=== PATIENT | male | born 1950 | race Caucasian/White ===

== ENCOUNTER 2016-09-22 11:15 | Emergency (ER) | payer OTHER, MEDICARE ==
[~2016-09-22] VITALS: Ht 177.8 cm; Wt 68.4 kg
[~2016-09-22 11:15] MED LIST: ASPI81TA28 PO; CIPR-255 PO; HYDR25TA4 PO; LOSA1TAB PO; NTRS PO; OMEG10007 PO; RED600TA PO
[2016-09-22 11:18] VITALS: Ht 177.8 cm; Wt 68.4 kg
[2016-09-22] MEDS ORDERED: SODIUM CHLORIDE 0.9% 1000ML 1,000 ML IV ONE (11:26)
[2016-09-22] MEDS ORDERED: ALBUT/IPRATROP 3MG/0.5MG NEB 3 ML VIAL INH STA (11:26)
--- NOTE | 2016-09-22 11:34 | EMERGENCY ROOM VISIT NOTE ---
History Report prepared by Adwoa: Shayne Gilbert Under the Supervision of: Dr. Freddy Almazan M.D. First contact with patient: 11:22 Chief Complaint: FEVER Stated Complaint: FEVER X 7 DAYS History of Present Illness The patient is a 66 year old male who presents to the Emergency Room with complaints of a persistent fever beginning 7 days ago. He notes he has had a productive cough beginning yesterday, and some diarrhea yesterday. He denies having any sore throat, stuffy nose, abdominal pain, urinary symptoms, or any chest pain. He has not had recent sick contacts, but notes he has been skiing recently with which he has had some shortness of breath. The patient denies any history of lung disease, bronchitis, or pneumonia. He admits to getting the flu shot, and reports that Ibuprofen helps to break his fever. Source of History: patient Onset: 7 days ago Position: other (global) Quality: other (fever) Timing: other (persistent) Modifying Factors (Relieving): ibuprofen Associated Symptoms: + SOB (with skiing), + cough, + diarrhea, No abdominal pain, No sorethroat, No urinary symptoms Review of Systems See HPI for pertinent positives & negatives. A total of 10 systems reviewed and were otherwise negative. Family History No pertinent family history stated. Social History Smoking Status: Never Smoker Housing Status: other [facility]) Current/Historical Medications Scheduled Albuterol Hfa (Ventolin Hfa), 2 PUFFS INH Q6H Amlodipine Besylate (Norvasc), 10 MG PO DAILY Amoxicillin & Pot Clavulanate (Augmentin 875-125 mg), 875 MG PO BID Aspirin (Aspirin Ec), 81 MG PO DAILY Fish Oil ([place]-3), 2,400 MG PO DAILY Hydrochlorothiazide (Hctz), 12.5 MG PO DAILY Ibuprofen (Advil), 200-600 MG PO Q4H Losartan Potassium (Cozaar), 25 MG PO DAILY Red Yeast Rice Extract (Red Yeast Rice), 1 TAB PO DAILY Allergies Coded Allergies: No Known Allergies (Unverified , 09/22/16) Physical Exam Vital Signs Date Time Temp Pulse Resp B/P Pulse Ox O2 Delivery O2 Flow Rate FiO2 09/22/16 14:01 88 20 106/75 96 09/22/16 13:10 37.2 82 22 107/74 94 Room Air 09/22/16 11:49 89 09/22/16 11:40 94 Room Air 09/22/16 11:18 37.5 93 18 122/70 91 Room Air Physical Exam GENERAL: Patient is in no acute distress. HEENT: No acute trauma, normocephalic atraumatic, mucous membranes moist, no nasal congestion, no scleral icterus. No throat erythema or exudate. NECK: No stridor, no adenopathy, no meningismus, trachea is midline. LUNGS: Decreased breath sounds bilaterally; breath sounds are equal; crackles at the right base more so than the left. HEART: Without murmurs gallops or rubs, regular rate and rhythm. ABDOMEN: Soft, nontender, bowel sounds positive, no hernias, no peritonitis. EXTREMITIES: No cyanosis or edema, full range of motion of all the joints without pain or difficulty, no signs for acute trauma. NEUROLOGIC: Oriented x 3, no acute motor or sensory deficits, no focal weakness. SKIN: No rash, no jaundice, mild diaphoresis. Medical Decision & Procedures ER Provider Diagnostic Interpretation: X-ray results as stated below per interpretation by me and the radiologist: CHEST ONE VIEW PORTABLE FINDINGS: Developing bilateral parenchymal infiltrates. No evidence for true consolidative change. Diaphragms are smooth. IMPRESSION: Bilateral parenchymal infiltrates. Electronically signed by: Jordan Schmidt M.D. 09/22/2016 11:38 AM Dictated Date/Time: 09/22/2016 11:38 AM Laboratory Results 09/22/16 11:45 Red Blood Count 4.37, Mean Corpuscular Volume 83.3, Mean Corpuscular Hemoglobin 29.5, Mean Corpuscular Hemoglobin Concent 35.4, Mean Platelet Volume 10.4, Neutrophils (%) (Auto) 86.6, Lymphocytes (%) (Auto) 10.3, Monocytes (%) (Auto) 2.3, Eosinophils (%) (Auto) 0.1, Basophils (%) (Auto) 0.1, Neutrophils # (Auto) 12.67, Lymphocytes # (Auto) 1.51, Monocytes # (Auto) 0.33, Eosinophils # (Auto) 0.01, Basophils # (Auto) 0.01 09/22/16 11:45 Test 09/22/16 00:00 09/22/16 11:36 09/22/16 11:45 09/22/16 11:49 Urine Color DK YELLOW Urine Appearance CLEAR (CLEAR) Urine pH 5.5 (4.5-7.5) Urine Specific [place] 1.031 (1.000-1.030) Urine Protein 3+ (NEG) Urine Glucose (UA) NEG (NEG) Urine Ketones NEG (NEG) Urine Occult Blood 3+ (NEG) Urine Nitrite NEG (NEG) Urine Bilirubin NEG (NEG) Urine Urobilinogen NEG (NEG) Urine Leukocyte Esterase TRACE (NEG) Urine WBC (Auto) 5-10 /hpf (0-5) Urine RBC (Auto) >30 /hpf (0-4) Urine Hyaline Casts (Auto) 5-10 /lpf (0-5) Urine Epithelial Cells (Auto) >30 /lpf (0-5) Urine Bacteria (Auto) NEG (NEG) Urine Renal Epithelial Cells /lpf (0-5) Urine Pathogenic Casts 1-5 GRANULAR CASTS /lpf (0) Urine Mucus PRESENT (NONE PRSENT) Influenza Type A Antigen Neg for Influ A (NEG) Influenza Type B Antigen Neg for Influ B (NEG) White Blood Count 14.62 K/uL (4.8-10.8) Red Blood Count 4.37 M/uL (4.7-6.1) Hemoglobin 12.9 g/dL (14.0-18.0) Hematocrit 36.4 % (42-52) Mean Corpuscular Volume 83.3 fL (80-100) Mean Corpuscular Hemoglobin 29.5 pg (25-34) Mean Corpuscular Hemoglobin Concent 35.4 g/dl (32-36) Platelet Count 273 K/uL (130-400) Mean Platelet Volume 10.4 fL (7.4-10.4) Neutrophils (%) (Auto) 86.6 % Lymphocytes (%) (Auto) 10.3 % Monocytes (%) (Auto) 2.3 % Eosinophils (%) (Auto) 0.1 % Basophils (%) (Auto) 0.1 % Neutrophils # (Auto) 12.67 K/uL (1.4-6.5) Lymphocytes # (Auto) 1.51 K/uL (1.2-3.4) Monocytes # (Auto) 0.33 K/uL (0.11-0.59) Eosinophils # (Auto) 0.01 K/uL (0-0.5) Basophils # (Auto) 0.01 K/uL (0-0.2) RDW Standard Deviation 42.0 fL (36.4-46.3) RDW Coefficient of Variation 13.8 % (11.5-14.5) Immature Granulocyte % (Auto) 0.6 % Immature Granulocyte # (Auto) 0.09 K/uL (0.00-0.02) Anion Gap 10.0 mmol/L (3-11) Est Creatinine Clear Calc Drug Dose 62.2 ml/min Estimated GFR () 79.5 Estimated GFR (Non- 68.6 BUN/Creatinine Ratio 12.5 (10-20) Calcium Level 8.1 mg/dl (8.5-10.1) Total Bilirubin 0.4 mg/dl (0.2-1) Aspartate Amino Transf (AST/SGOT) 36 U/L (15-37) Alanine Aminotransferase (ALT/SGPT) 32 U/L (12-78) Alkaline Phosphatase 122 U/L (45-117) Pro-B-Type Natriuretic Peptide 415 pg/ml (0-900) Total Protein 7.6 gm/dl (6.4-8.2) Albumin 2.6 gm/dl (3.4-5.0) Globulin 5.0 gm/dl (2.5-4.0) Albumin/Globulin Ratio 0.5 (0.9-2) Bedside Lactic Acid Venous 1.10 mmol/L (0.90-1.70) Test 09/22/16 12:34 Prothrombin Time 12.0 SECONDS (9.0-12.0) Prothromb Time International Ratio 1.1 (0.9-1.1) Activated Partial Thromboplast Time 31.9 SECONDS (21.0-31.0) Partial Thromboplastin Ratio 1.2 Laboratory results reviewed by me. Medications Administered Medications (Trade) Dose Ordered Sig/Umu Route Start Time Stop Time Status Last Admin Dose Admin Sodium Chloride (Nss 1000ml) 1,000 ml @ 999 mls/hr Q1H1M ONCE IV 09/22/16 11:26 09/22/16 12:26 DC 09/22/16 11:39 999 MLS/HR Albuterol/ Ipratropium (Duoneb) 3 ml NOW STAT INH 09/22/16 11:26 09/22/16 11:27 DC 09/22/16 11:39 3 ML Piperacillin Sod/ Tazobactam Sod (Zosyn Iv) 4.5 gm NOW STAT IV 09/22/16 11:39 09/22/16 11:41 DC 09/22/16 12:05 4.5 GM Albuterol (Ventolin Hfa Inhaler) 2 puffs NOW ONCE INH 09/22/16 14:00 09/22/16 14:01 DC 09/22/16 14:08 2 PUFFS ECG Indication: other (fever) Rate (beats per minute): 86 Rhythm: normal sinus Findings: no acute ischemic change, no ectopy, other (possible septal infarct) ED Course 1122: The patient was evaluated in room C3. A complete history and physical exam was performed. 1126: Ordered Duoneb 3 ml INH, and NSS 1,000 ml @ 999 mls/hr IV. 1139: Ordered Zosyn Iv 4.5 gm IV. 1245: I updated the patient. 1356: I updated the patient. He would like to go home as he feels well, and he agrees to come back if his symptoms worsen. 1400: Ordered Albuterol 2 puffs INH. 1405: Reevaluated the patient. Discussed results and discharge instructions: He verbalized understanding and agreement. The patient is ready for discharge. Medical Decision Differentials include influenza, sepsis, flu-like illness, bronchitis, pneumonia , UTI, and cellulitis. There is a mild leukocytosis which would be consistent with infection. No worrisome anemia. No significant electrolyte abnormality, kidney failure or hepatitis. Lactic acid level is not elevated making sepsis less likely. Influenza testing is negative. Blood cultures are pending. EKG shows a sinus rhythm, no acute ischemia. Chest x-ray shows a bilateral pneumonia, no pneumothorax. The patient received a DuoNeb, IV Zosyn, albuterol via MDI. He is doing well. He would like to be discharged home. As he is not hypoxic or toxic, as he feels improved compared to when he first arrived at the ER, I will have the patient discharged. He will be on Augmentin twice a day for 10 days, albuterol for bronchospasm. He will continue the Motrin or Tylenol for fever. Rest and hydration was encouraged. He will see his doctor this week and return if worsening. If feeling more for breath, he will report back to the ER. Impression Primary Impression: Pneumonia Scribe Attestation The scribe's documentation has been prepared under my direction and personally reviewed by me in its entirety. I confirm that the note above accurately reflects all work, treatment, procedures, and medical decision making performed by me. Departure Information Dispostion Home / Self-Care Prescriptions Albuterol Hfa (VENTOLIN HFA) 200 Puffs/[id number] Mcg Aers 2 PUFFS INH Q6H, #1 INTER.UNIT Prov: Freddy Almazan M.D. 09/22/16 Amoxicillin & Pot Clavulanate (Augmentin 875-125 mg) 1 Tab Tab 875 MG PO BID for 10 Days, #20 TAB Prov: Freddy Almazan M.D. 09/22/16 Referrals Lillian Rizo M.D. (PCP) Patient Instructions My [facility] Additional Instructions rest fluids augmentin 2x per day for 10 days albuterol 2 puffs every 4 hours tylenol or motrin for fever see your doctor for a recheck this week return for worsening breathing or symptoms, return if not improving
[2016-09-22] MEDS ORDERED: PIPERACILLIN/TAZOBACTAM 4.5 GM/100ML D5W IV STA (11:39)
--- NOTE | 2016-09-22 11:39 | DIAGNOSTIC IMAGING REPORT ---
CHEST ONE VIEW PORTABLE CLINICAL HISTORY: Sepsis dyspnea COMPARISON STUDY: 06/09/2015 FINDINGS: Developing bilateral parenchymal infiltrates. No evidence for true consolidative change. Diaphragms are smooth. IMPRESSION: Bilateral parenchymal infiltrates. Electronically signed by: Jordan Schmidt M.D. 09/22/2016 11:38 AM Dictated Date/Time: 09/22/2016 11:38 AM
[2016-09-22 11:40] VITALS: O2SAT 94
[2016-09-22 12:09] LABS: BASO % 0.1 %; BASO ABS # 0.01 K/uL (0-0.2); COMPLETE YES; EOS % 0.1 %; HEMATOCRIT 36.4 % (42-52); IG% 0.6 %; LYMPH % 10.3 %; LYMPH ABS # 1.51 K/uL (1.2-3.4); MEAN CELL VOLUME 83.3 fL (80-100); MEAN CORPUSCULAR HEMOGLOBIN 29.5 pg (25-34); MEAN CORPUSCULAR HGB CONC 35.4 g/dl (32-36); MEAN PLATELET VOLUME 10.4 fL (7.4-10.4); MONO % 2.3 %; NEUT % 86.6 %; PLATELET COUNT 273 K/uL (130-400); RED BLOOD COUNT 4.37 M/uL (4.7-6.1); WHITE BLOOD COUNT 14.62 K/uL (4.8-10.8)
[2016-09-22 12:25] LABS: BUN/CREATININE RATIO 12.5 (10-20); CALCIUM 8.1 mg/dl (8.5-10.1); CREATININE 1.1 mg/dl (0.60-1.40); POTASSIUM 3.4 mmol/L (3.5-5.1)
[2016-09-22 12:30] LABS: ALB/GLOB RATIO 0.5 (0.9-2)
[2016-09-22 12:37] LABS: URINE APPEARANCE CLEAR (CLEAR); URINE COLOR DK YELLOW; URINE EPITHELIAL CELL AUTO >30 /lpf (0-5); URINE NITRITE NEG (NEG); URINE PH 5.5 (4.5-7.5); URINE SPECIFIC GRAVITY 1.031 (1.000-1.030); UROBILINOGEN NEG (NEG); ZZUR CULT IF INDIC CLEAN CATCH NO
[2016-09-22 12:42] LABS: MANUAL MICROSCOPIC REQUIRED? NO; REVIEW REQ? YES; URINE BILIRUBIN NEG (NEG)
[2016-09-22 12:50] LABS: INR 1.1 (0.9-1.1); PARTIAL THROMBOPLASTIN RATIO 1.2
[2016-09-22 12:51] LABS: URINE PATH CASTS 1-5 GRANULAR CASTS /lpf (0)
[2016-09-22 12:52] LABS: URINE MUCUS PRESENT (NONE PRSENT)
[2016-09-22] MEDS ORDERED: IBUP-1050 PO (12:55)
[2016-09-22 13:10] VITALS: TEMP 37.2
[2016-09-22] MEDS ORDERED: ALBUTEROL HFA 8 GM INHALER INH ONE (14:00)
[2016-09-22 14:01] VITALS: BP 106/75; PULSE 88; O2SAT 96
[2016-09-22] MEDS ORDERED: VNTHFA/IN INH (14:01)
[2016-09-22] MEDS ORDERED: AMOX875T PO (14:01)
[2016-09-23] MEDS ORDERED: AMLO10TA4 PO (07:42)
== END 2016-09-22 14:18 | disposition home or self-care (01) ==
LOC: C.EDB 11:18 → C.EDC 14:18
DX: J18.9 Pneumonia, unspecified organism (principal); R19.7 Diarrhea, unspecified; Z79.899 Other long term (current) drug therapy; Z79.82 Long term (current) use of aspirin

== ENCOUNTER 2016-09-23 21:07 | Inpatient (IN) | payer OTHER, MEDICARE ==
[~2016-09-23] VITALS: Ht 177.8 cm; Wt 81.3 kg
[~2016-09-23 21:07] MED LIST changes: +AMLO10TA4 PO; +AMOX875T PO; -CIPR-255 PO; +IBUP-1050 PO; -NTRS PO; +VNTHFA/IN INH
[2016-09-23] MEDS ORDERED: SODIUM CHLORIDE 0.9% 1000ML 1,000 ML IV STA (21:29)
[2016-09-23] MEDS ORDERED: SODIUM CHLORIDE 0.9% 500ML 500 ML IV STA (21:29)
[2016-09-23] MEDS ORDERED: LEVAQUIN 750MG / 150ML D5W IV STA (21:44)
--- NOTE | 2016-09-23 21:47 | DIAGNOSTIC IMAGING REPORT ---
CHEST ONE VIEW PORTABLE HISTORY: Follow-up pneumonia. COMPARISON: Chest 09/22/2016. FINDINGS: Slight progression of the bilateral airspace opacities. The heart is stable in size. No pleural effusions. No pneumothorax. Mild diffuse interstitial thickening is also stable. IMPRESSION: Slight progression of the bilateral airspace opacities. Electronically signed by: Tavo Marina M.D. 09/23/2016 9:45 PM Dictated Date/Time: 09/23/2016 9:44 PM
[2016-09-23] MEDS ORDERED: PIPERACILLIN/TAZOBACTAM 4.5 GM/100ML D5W IV STA (21:52)
--- NOTE | 2016-09-23 22:02 | EMERGENCY ROOM VISIT NOTE ---
History Report prepared by Adwoa: Roberto Martinez Under the Supervision of: Dr. Radha Davis M.D. First contact with patient: 21:28 Chief Complaint: RESPIRATORY PROBLEMS Stated Complaint: PNEUMONIA BOTH LUNGS, TOLD TO RETURN IF WORSE History of Present Illness The patient is a 66 year old male who presents to the Emergency Room with complaints of worsening shortness of breath beginning one prior to arrival. He states he was diagnosed with pneumonia yesterday and was told to return if his symptoms worsened. The patient notes his fever was 101.4 F earlier today. He denies vomiting and a cough. Source of History: patient Onset: one day [employer] Position: other (global) Quality: other (SOB) Timing: worsening Associated Symptoms: + SOB, No cough, No vomiting Review of Systems See HPI for pertinent positives & negatives. A total of 10 systems reviewed and were otherwise negative. Past Medical & Surgical Medical Problems: (1) Fever (2) Leukocytosis (3) Pneumonia Family History Patient reports no known family medical history. Social History Smoking Status: Former Smoker Marital Status: single Housing Status: other Occupation Status: retired Current/Historical Medications Scheduled Albuterol Hfa (Ventolin Hfa), 2 PUFFS INH Q6H Amlodipine Besylate (Norvasc), 10 MG PO DAILY Amoxicillin & Pot Clavulanate (Augmentin 875-125 mg), 875 MG PO BID Aspirin (Aspirin Ec), 81 MG PO DAILY Fish Oil ([place]-3), 2,400 MG PO DAILY Hydrochlorothiazide (Hctz), 12.5 MG PO DAILY Ibuprofen (Advil), 200-600 MG PO Q4H Losartan Potassium (Cozaar), 25 MG PO DAILY Red Yeast Rice Extract (Red Yeast Rice), 1 TAB PO DAILY Allergies Coded Allergies: No Known Allergies (Unverified , 09/22/16) Physical Exam Vital Signs Date Time Temp Pulse Resp B/P Pulse Ox O2 Delivery O2 Flow Rate FiO2 09/23/16 22:14 102 16 120/81 97 Nebulizer 8.0 09/23/16 21:37 106 09/23/16 21:36 37.9 101 22 125/81 92 Nasal Cannula 2.0 09/23/16 21:34 94 Nasal Cannula 2.0 09/23/16 21:33 89 Room Air 09/23/16 21:33 88 Room Air 09/23/16 21:09 36.9 112 20 137/74 91 Room Air Physical Exam Vital signs reviewed. Noted to be febrile. General: Well-appearing male, in no significant distress. HEENT: No scleral icterus, PERRLA, neck supple. Atraumatic. Cardiovascular: Regular rate and rhythm, no extra sounds. Pulmonary: Bilateral crackles, increased work of breathing. Hypoxic on room air. Abdomen: Soft, nontender, nondistended, positive bowel sounds. Musculoskeletal: Atraumatic, no peripheral edema. Neurologic: Patient awake alert and oriented x 3, full strength in all 4 extremities. Cranial nerves 2 through 12 grossly intact. Skin: Warm, dry, no rash Medical Decision & Procedures ER Provider Diagnostic Interpretation: X-ray results as stated below per interpretation by me and the radiologist: CHEST ONE VIEW PORTABLE HISTORY: Follow-up pneumonia. COMPARISON: Chest 09/22/2016. FINDINGS: Slight progression of the bilateral airspace opacities. The heart is stable in size. No pleural effusions. No pneumothorax. Mild diffuse interstitial thickening is also stable. IMPRESSION: Slight progression of the bilateral airspace opacities. Electronically signed by: Tavo Marina M.D. 09/23/2016 9:45 PM Laboratory Results Test 09/23/16 21:58 09/23/16 22:04 09/23/16 22:20 Dohle Bodies 1+ Direct Bilirubin 0.2 mg/dl (0-0.2) Bedside Lactic Acid Venous 1.18 mmol/L (0.90-1.70) Bedside Troponin I 0.020 ng/ml (0-0.045) Laboratory results per my review. Medications Administered Medications (Trade) Dose Ordered Sig/Umu Route Start Time Stop Time Status Last Admin Dose Admin Sodium Chloride (Nss 500ml) 500 ml @ 999 mls/hr Q31M STAT IV 09/23/16 21:29 09/23/16 21:59 DC 09/23/16 22:10 999 MLS/HR Levofloxacin (Levaquin / D5W) 750 mg NOW STAT IV 09/23/16 21:44 09/23/16 21:45 DC 09/23/16 22:49 750 MG Piperacillin Sod/ Tazobactam Sod (Zosyn Iv) 4.5 gm NOW STAT IV 09/23/16 21:52 09/23/16 21:53 DC 09/23/16 22:09 4.5 GM Albuterol/ Ipratropium (Duoneb) 3 ml NOW STAT INH 09/23/16 22:06 09/23/16 22:07 DC 09/23/16 22:09 3 ML Acetaminophen (Tylenol Tab) 650 mg Q4H PRN PO 09/23/16 23:00 10/23/16 22:59 09/24/16 15:43 650 MG Zolpidem Tartrate (Ambien Tab) 5 mg HSZ PRN PO 09/23/16 23:00 10/23/16 22:59 09/25/16 20:15 5 MG Polyethylene (Miralax Powder Packet) 17 gm DAILY PRN PO 09/23/16 23:00 10/23/16 22:59 09/24/16 10:10 17 GM ECG Indication: SOB/dyspnea Rate (beats per minute): 110 Rhythm: atrial fibrillation (w/ RVR) Findings: Q waves (Septal), no acute ischemic change Comparison ECG Date: 09/22/2016 Change: New onset atrial fibrillation ED Course 2132: Past medical records reviewed. The patient was evaluated in room B5. A complete history and physical examination was performed. 2128: Ordered Sodium Chloride 1,000 ml @ 125 mls/hr IV, Sodium Chloride 500 ml @ 999 mls/hr IV. 2143: Ordered Levofloxacin 750 mg IV. 2: Ordered Zosyn Iv 4.5 gm IV. 2206: Ordered Duoneb 3 ml INH. 2249: I spoke to TERESA French (Hospitalist) about the patient's case, and he will follow the patient for further evaluation. Medical Decision Fever: Influenza, other viral illness, pneumonia, urinary tract infection, metabolic abnormality, medication effect, cellulitis, meningitis, intra-abdominal source. This patient was evaluated and appeared to be in some discomfort. IV access was obtained and laboratory work was drawn. The patient was placed on the air sampling and monitoring and found to be slightly tachycardic, febrile and hypoxic on room air. He did well with nasal cannula oxygen. The patient's chest x-ray reveals a worsening bilateral pulmonary infiltrate. He had been treated with Augmentin previously. Patient was given IV hydration. Blood cultures were performed. He was treated with IV Levaquin 750 mg and Zosyn 4.5 g. Case was discussed with the hospitalist service. He will be evaluated for further management. Patient and are aware of the plan and agree. Consults Time Called: [phone] Consulting Physician: TERESA French (Hospitalist) Returned Call: [phone] I spoke to TERESA French (Hospitalist) about the patient's case, and he will follow the patient for further evaluation. Impression Primary Impression: Bilateral pneumonia Additional Impression: New onset atrial fibrillation Scribe Attestation The scribe's documentation has been prepared under my direction and personally reviewed by me in its entirety. I confirm that the note above accurately reflects all work, treatment, procedures, and medical decision making performed by me. Departure Information Dispostion Being Evaluated By Hospitalist (TERESA French (Hospitalist)) Referrals Lillian Rizo M.D. (PCP) Problem Qualifiers Primary Impression: Bilateral pneumonia Pneumonia type: due to unspecified organism Lung location: unspecified part of lung Qualified Codes: J18.9 - Pneumonia, unspecified organism
[2016-09-23] MEDS ORDERED: ALBUT/IPRATROP 3MG/0.5MG NEB 3 ML VIAL INH STA (22:06)
[2016-09-23 22:21] LABS: HEMATOCRIT 36.3 % (42-52); MEAN CELL VOLUME 82.3 fL (80-100); MEAN CORPUSCULAR HEMOGLOBIN 29.5 pg (25-34); MEAN CORPUSCULAR HGB CONC 35.8 g/dl (32-36); MEAN PLATELET VOLUME 10.4 fL (7.4-10.4); PLATELET COUNT 323 K/uL (130-400); RED BLOOD COUNT 4.41 M/uL (4.7-6.1); WHITE BLOOD COUNT 19.05 K/uL (4.8-10.8)
[2016-09-23 22:37] LABS: BUN/CREATININE RATIO 14.8 (10-20); CREATININE 1.2 mg/dl (0.60-1.40); POTASSIUM 3.7 mmol/L (3.5-5.1)
[2016-09-23 22:51] LABS: BASO % 0.1 %; BASO ABS # 0.02 K/uL (0-0.2); COMPLETE YES; DOHLE BODIES 1+; IG% 0.7 %; LYMPH % 5.8 %; LYMPH ABS # 1.11 K/uL (1.2-3.4); MONO % 1.4 %
[2016-09-23] MEDS ORDERED: MAGNESIUM HYDROXIDE SUSP 30 ML UDC PO PRN (23:00)
[2016-09-23] MEDS ORDERED: ALBUTEROL 0.083% NEBU SOLN 3 ML VIAL INH PRN (23:00)
[2016-09-23] MEDS ORDERED: ALUMINUM/MAGNESIUM/SIMETH (MAALOX MAX) 30 ML UDC PO PRN (23:00)
[2016-09-23] MEDS ORDERED: ONDANSETRON INJ 2 MG/ML 2 ML VIAL IV PRN (23:00)
[2016-09-23] MEDS ORDERED: POLYETHYLENE (MIRALAX) 17 GM PACK PO PRN (23:00)
[2016-09-23 23:10] LABS: INFLUENZA A PCR Neg for Influ A (NEG); INFLUENZA B PCR Neg for Influ B (NEG)
[2016-09-24] VITALS (15 sets, daily range): BP systolic 118–147; BP diastolic 65–84; PULSE 79–106; TEMP 36.6–38.2; O2SAT 92–97; Ht 177.8 cm; Wt 81.3 kg
--- NOTE | 2016-09-24 00:03 | History and Physical ---
History & Physical Date & Time of Service: Sep 23, 2016 at 23:22 Chief Complaint: Pneumonia Both Lungs, Told To Return If Worse Primary Care Physician: Lillian Rizo M.D. History of Present Illness Source: patient 66 y/o M w/Hx HTN, HPL - developed a cough, fever and SOB over the last 3 days. He was placed on Augmentin 2 days prior by his MD and has had a total of 3 doses. Despite this he has become increasingly dyspneic. A CXR obtained in the ER reveals worsening b/l PNM. The pt denies CP, N/V, diarrhea or dysuria. He does state that he feels his abdomen is distended over the past 2 days. Past Medical/Surgical History Medical Problems: (1) Pneumonia Status: Resolved \ 2) HTN 3) HPL 4) Cholecystitis - cholecystectomy 2014 Family History Patient reports no known family medical history. Father at age 92 Mother at age 66 [place] Social History Smoking Status: Former Smoker Marital Status: single Occupational Status: retired Allergies Coded Allergies: No Known Allergies (Unverified , 09/22/16) Home Medications Scheduled Albuterol Hfa (Ventolin Hfa), 2 PUFFS INH Q6H Amlodipine Besylate (Norvasc), 10 MG PO DAILY Amoxicillin & Pot Clavulanate (Augmentin 875-125 mg), 875 MG PO BID Aspirin (Aspirin Ec), 81 MG PO DAILY Fish Oil ([place]-3), 2,400 MG PO DAILY Hydrochlorothiazide (Hctz), 12.5 MG PO DAILY Ibuprofen (Advil), 200-600 MG PO Q4H Losartan Potassium (Cozaar), 25 MG PO DAILY Red Yeast Rice Extract (Red Yeast Rice), 1 TAB PO DAILY Review of Systems Constitutional: + chills, + fever, + sweats Eyes: No eye pain, No worsening of vision ENT: No hearing loss, No nasal symptoms, No unusual epistaxis Respiratory: + cough, + dyspnea at rest, + dyspnea on exertion, + shortness of breath, + sputum, No wheezing Cardiovascular: No PND, No chest pain Abdomen: + problem reported (Bloating / distention), No nausea, No pain Musculoskeletal: No joint pain, No muscle pain Genitourinary - Male: No dysuria, No hematuria, No urinary frequency, No urinary urgency Neurologic: No memory loss, No paralysis, No weakness Psychiatric: No depression symptoms Endocrine: + fatigue Hematologic / Lymphatic: No abnormal bleeding/bruising Integumentary: No rash Allergic / Immunologic: No environmental allergies Physical Exam Vital Signs Date Time Temp Pulse Resp B/P Pulse Ox O2 Delivery O2 Flow Rate FiO2 09/23/16 22:14 102 16 120/81 97 Nebulizer 8.0 09/23/16 21:37 106 09/23/16 21:36 37.9 101 22 125/81 92 Nasal Cannula 2.0 09/23/16 21:34 94 Nasal Cannula 2.0 09/23/16 21:33 89 Room Air 09/23/16 21:33 88 Room Air 09/23/16 21:09 36.9 112 20 137/74 91 Room Air General Appearance: WD/WN, no apparent distress Head: normocephalic, atraumatic Eyes: normal inspection, EOMI ENT: normal ENT inspection, hearing grossly normal, TMs normal Neck: supple, no JVD Respiratory/Chest: chest non-tender, + pertinent finding (Crackles at R base - no wheezing) Cardiovascular: regular rate, rhythm, no edema, no gallop, no JVD, no murmur, normal peripheral pulses Abdomen/GI: normal bowel sounds, non tender, + pertinent finding (Mild distention - nontender - BS + hypoactive) Back: normal inspection, no CVA tenderness Extremities/Musculoskelatal: normal inspection, no calf tenderness, normal capillary refill, no pedal edema, normal range of motion 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, no motor/sensory deficits, alert, normal mood/affect, normal reflexes, oriented x 3 Skin: normal color, warm/dry, no rash Diagnostics Laboratory Results Results Past 24 Hours Test 09/23/16 21:43 09/23/16 21:58 09/23/16 22:04 09/23/16 22:20 Range/Units Influenza Type A (RT-PCR) Neg for Influ A NEG Influenza Type B (RT-PCR) Neg for Influ B NEG White Blood Count 19.05 4.8-10.8 K/uL Red Blood Count 4.41 4.7-6.1 M/uL Hemoglobin 13.0 14.0-18.0 g/dL Hematocrit 36.3 42-52 % Mean Corpuscular Volume 82.3 80-100 fL Mean Corpuscular Hemoglobin 29.5 25-34 pg Mean Corpuscular Hemoglobin Concent 35.8 32-36 g/dl Platelet Count 323 130-400 K/uL Mean Platelet Volume 10.4 7.4-10.4 fL Neutrophils (%) (Auto) 92.0 % Lymphocytes (%) (Auto) 5.8 % Monocytes (%) (Auto) 1.4 % Eosinophils (%) (Auto) 0.0 % Basophils (%) (Auto) 0.1 % Neutrophils # (Auto) 17.52 1.4-6.5 K/uL Lymphocytes # (Auto) 1.11 1.2-3.4 K/uL Monocytes # (Auto) 0.26 0.11-0.59 K/uL Eosinophils # (Auto) 0.00 0-0.5 K/uL Basophils # (Auto) 0.02 0-0.2 K/uL RDW Standard Deviation 42.9 36.4-46.3 fL RDW Coefficient of Variation 14.1 11.5-14.5 % Immature Granulocyte % (Auto) 0.7 % Immature Granulocyte # (Auto) 0.14 0.00-0.02 K/uL Dohle Bodies 1+ Sodium Level 134 136-145 mmol/L Potassium Level 3.7 3.5-5.1 mmol/L Chloride Level 97 98-107 mmol/L Carbon Dioxide Level 25 21-32 mmol/L Anion Gap 12.0 3-11 mmol/L Blood Urea Nitrogen 18 7-18 mg/dl Creatinine 1.20 0.60-1.40 mg/dl Est Creatinine Clear Calc Drug Dose 60.8 ml/min Estimated GFR () 71.6 Estimated GFR (Non- 61.8 BUN/Creatinine Ratio 14.8 10-20 Random Glucose 103 70-99 mg/dl Calcium Level 8.0 8.5-10.1 mg/dl Total Bilirubin 0.5 0.2-1 mg/dl Direct Bilirubin 0.2 0-0.2 mg/dl Aspartate Amino Transf (AST/SGOT) 31 15-37 U/L Alanine Aminotransferase (ALT/SGPT) 30 12-78 U/L Alkaline Phosphatase 156 45-117 U/L Total Protein 7.4 6.4-8.2 gm/dl Albumin 2.4 3.4-5.0 gm/dl Bedside Lactic Acid Venous 1.18 0.90-1.70 mmol/L Bedside Troponin I 0.020 0-0.045 ng/ml Microbiology Results 09/23/16 Blood Culture, Received Pending 09/23/16 Blood Culture, Received Pending Diagnostic Radiology Bibasilar PNM Impression Assessment and Plan 66 y/o M w/Hx HTN, HPL - developed a cough, fever and SOB over the last 3 days. He was placed on Augmentin 2 days prior by his MD and has had a total of 3 doses. Despite this he has become increasingly dyspneic. A CXR obtained in the ER reveals worsening b/l PNM. The pt denies CP, N/V, diarrhea or dysuria. He does state that he feels his abdomen is distended over the past 2 days. 1) PNM - Pt provided with Zosyn as he was receib=vng Augmentin and it does not make sense to narrow his coverage. Levaquin added for atypicals. 02 protocol, Duonebs/Albuterol. Sputum and blood cultures pending. 2) HTN - Cont Cozaar - HCTZ held due to clinical dehydration 3) HPL - takes red yeast and fish oil - this is by choice as he denies a Statin allergy - can continue as red yeast a outpt and will continue fish oil 4) Abdominal distention - may have some dysmotility related to acute infection - will consider imaging if there is no resolution or worsening Total time for this admit including review of records, labs, imaging - med rec - discussion with pt and ER attending 37 min Level of Care Telemetry Resuscitation Status FULL RESUSCITATION VTE Prophylaxis VTE Risk Assessment Done? Y/N: Yes Risk Level: Low Given or contraindicated: Enoxaparin (Lovenox)SQ
[2016-09-24] MEDS: D5NSS + 20MEQ KCL 1,000 ML IV SCH ×2 (01:36→11:16)
[2016-09-24] MEDS: ALBUT/IPRATROP 3MG/0.5MG NEB 3 ML VIAL INH SCH ×2 (01:58→07:19)
[2016-09-24] MEDS ORDERED: PIPERACILL/TAZOBAC CONSULT ACTIVE PRN (02:45)
[2016-09-24] MEDS: PIPERACILL/TAZOBAC IV 3.375 GM in DEXTROSE 5% 100ML 100 ML IV SCH ×3 (03:48→19:41)
[2016-09-24 07:31] LABS: MEAN CELL VOLUME 81.3 fL (80-100); MEAN CORPUSCULAR HEMOGLOBIN 28.1 pg (25-34); MEAN CORPUSCULAR HGB CONC 34.5 g/dl (32-36); PLATELET COUNT 310 K/uL (130-400); RED BLOOD COUNT 4.06 M/uL (4.7-6.1); WHITE BLOOD COUNT 17.97 K/uL (4.8-10.8)
[2016-09-24] MEDS: AMLODIPINE BESYLATE 5 MG TAB PO SCH (07:41)
[2016-09-24] MEDS: LOSARTAN POTASSIUM 25 MG TAB PO SCH (07:41)
[2016-09-24] MEDS: ASPIRIN 81 MG ECTAB PO SCH (07:42)
[2016-09-24] MEDS: OMEGA-3 (PURIFIED FISH OIL) 1 GM CAP PO SCH (07:42)
[2016-09-24 07:59] LABS: BUN/CREATININE RATIO 10.9 (10-20); CALCIUM 7.6 mg/dl (8.5-10.1); CREATININE 1.2 mg/dl (0.60-1.40); MAGNESIUM 2.3 mg/dl (1.8-2.4); POTASSIUM 3.8 mmol/L (3.5-5.1)
[2016-09-24] MEDS ORDERED: ENOXAPARIN 40 MG/0.4 ML SYR SC SCH (08:00)
--- NOTE | 2016-09-24 08:54 | DIAGNOSTIC IMAGING REPORT ---
SINGLE VIEW CHEST CLINICAL HISTORY: Follow-up pneumonia. Dyspnea. FINDINGS: An AP, portable, upright chest radiograph is compared to study dated 09/23/16. The heart is top normal for projection. The mediastinal contour is within normal limits. There is dense bilateral patchy airspace consolidation. No large pleural effusion or pneumothorax is seen. The skeletal structures appear osteopenic. The bony thorax is grossly intact. IMPRESSION: Multifocal bilateral airspace consolidation has not significantly changed from yesterday and likely represents multifocal pneumonia. Radiographic follow-up to resolution is recommended. Electronically signed by: Freddy Velazquez M.D. 09/24/2016 8:53 AM Dictated Date/Time: 09/24/2016 8:51 AM
--- NOTE | 2016-09-24 08:56 | DIAGNOSTIC IMAGING REPORT ---
ABDOMEN 2 VIEWS CLINICAL HISTORY: Fever. Abdominal distention. Bloating. FINDINGS: Supine and left lateral decubitus abdominal radiographs are correlated with abdominal ultrasound dated 06/09/2015. There is mild gaseous distention of the small bowel and colon. No bowel obstruction is seen. No evidence of intraperitoneal free air is identified on the decubitus view. There are no abnormal abdominal calcifications. Cholecystectomy clips are identified in the right upper quadrant. Phleboliths are seen in the pelvis. Multifocal patchy airspace consolidation is noted at both lung bases. The skeletal structures appear osteopenic. The bony structures are intact as imaged. IMPRESSION: 1. There is mild gaseous distention of the small bowel and colon suggesting ileus. Clinical correlation will be required. 2. There is no radiographic evidence of bowel obstruction or intraperitoneal free air. 3. Multifocal patchy airspace consolidation is present at the lung bases. Electronically signed by: Freddy Velazquez M.D. 09/24/2016 8:55 AM Dictated Date/Time: 09/24/2016 8:53 AM
[2016-09-24] MEDS ORDERED: LEVALBUTEROL 1.25MG/0.5ML NEB INH ONE (09:00)
[2016-09-24] MEDS ORDERED: ACETAMINOPHEN IV 1,000 MG in EMPTY BAG 0 ML IV ONE (09:00)
[2016-09-24] MEDS ORDERED: HYDROCHLOROTHIAZIDE 25 MG TAB PO SCH (09:00)
[2016-09-24] MEDS: ACETAMINOPHEN 325 MG TAB PO PRN ×2 (10:07→15:43)
[2016-09-24] MEDS ORDERED: OSELTAMIVIR PHOSPHATE 75 MG CAP PO ONE (10:30)
[2016-09-24] MEDS ORDERED: LACTULOSE SYRUP 30 GM/45 ML UDP PO ONE (10:30)
[2016-09-24 10:54] LABS: ARTERIAL BLOOD GAS BASE EXCESS 0.1 mEq/L (-9-1.8); ARTERIAL BLOOD GAS pH 7.52 (7.35-7.45)
[2016-09-24 10:55] LABS: ALLEN TEST POS (POS); ARTERIAL BLD GAS O2 SATURATION 94.7 % (90-95); ARTERIAL BLOOD GAS HCO3 22 mmol/L (19-24); ARTERIAL BLOOD GAS PO2 76 mm/Hg (80-95); O2 ADMINISTRATION 4L
--- NOTE | 2016-09-24 11:33 | Family Medicine Progress Note ---
Progress Note Date of Service Sep 24, 2016. Subjective Pt evaluation today including: conversation w/ patient, conversation w/ family Mr Farooq felt short of breath again today, and was very warm / sweaty. Denied any chest pain. was concerned as he was occasionally confused as well. On further review, he was resting better. He has been tolerating 4L Nasal cannula well. He has had minimal sputum production. Constitutional: + chills, + fever (38.2C today.), + sweats, + weakness Eyes: No worsening of vision ENT: No hearing loss Respiratory: + cough, + dyspnea at rest, + dyspnea on exertion, + shortness of breath, + sputum, No wheezing Cardiovascular: No chest pain Abdomen: No diarrhea, No nausea, No pain, No vomiting Musculoskeletal: No joint pain Male : No dysuria Psychiatric: No depression symptoms Endo: No fatigue All Other Systems: Reviewed and Negative Medications Current Inpatient Medications Medications (Trade) Dose Ordered Sig/Umu Route Start Time Stop Time Status Last Admin Dose Admin Amlodipine Besylate (Norvasc Tab) 10 mg DAILY PO 09/24/16 09:00 10/24/16 08:59 09/24/16 07:41 10 MG Aspirin (Ecotrin Tab) 81 mg DAILY PO 09/24/16 09:00 10/24/16 08:59 09/24/16 07:42 81 MG Fish Oil ([place]-3 (Purified Fish Oil) Cap) 2 gm DAILY PO 09/24/16 09:00 10/24/16 08:59 09/24/16 07:42 2 GM Losartan Potassium 25 mg 25 mg DAILY PO 09/24/16 09:00 10/24/16 08:59 09/24/16 07:41 25 MG Piperacillin Sod/ Tazobactam Sod/ Dextrose (Zosyn Iv/D5 100ml) 115 ml @ 28.75 mls/ hr Q8H IV 09/24/16 04:00 10/01/16 03:59 09/24/16 12:04 28.75 MLS/HR Enoxaparin Sodium (Lovenox Inj) 40 mg Q24H SC 09/24/16 08:00 10/24/16 07:59 09/24/16 07:42 40 MG Acetaminophen (Tylenol Tab) 650 mg Q4H PRN PO 09/23/16 23:00 10/23/16 22:59 09/24/16 10:07 650 MG Al Hydrox/Mg Hydrox/Simethicone (Maalox Max Susp) 15 ml Q4H PRN PO 09/23/16 23:00 10/23/16 22:59 Magnesium Hydroxide (Milk Of Magnesia Susp) 30 ml Q12H PRN PO 09/23/16 23:00 10/23/16 22:59 Zolpidem Tartrate (Ambien Tab) 5 mg HSZ PRN PO 09/23/16 23:00 10/23/16 22:59 Ondansetron HCl (Zofran Inj) 4 mg Q6H PRN IV 09/23/16 23:00 10/23/16 22:59 Polyethylene 17 gm 17 gm DAILY PRN PO 09/23/16 23:00 10/23/16 22:59 09/24/16 10:10 17 GM Levofloxacin 750 mg/Prmx 150 ml @ 100 mls/hr Q24H IV 09/24/16 22:00 09/30/16 21:59 Potassium Chloride/Dextrose/ Sod Cl (D5nss + 20meq KCl) 1,000 ml @ 100 mls/hr Q10H IV 09/24/16 01:30 09/24/16 21:29 09/24/16 11:16 100 MLS/HR Piperacillin Sod/ Tazobactam Sod (Consult) 1 ea UD PRN N/A 09/24/16 02:45 10/24/16 02:44 Levalbuterol (Xopenex 1.25MG/ 0.5ML Neb) 1.25 mg Q6R INH 09/24/16 15:00 10/24/16 14:59 09/24/16 14:02 1.25 MG Oseltamivir Phosphate 75 mg 75 mg BID PO 09/24/16 21:00 09/29/16 08:59 Vancomycin HCl/ Sodium Chloride (Vancomycin Inj/ Nss 250ml) 270 ml @ 125 mls/hr Q12 IV 09/24/16 21:00 10/01/16 20:59 UNV Objective Vital Signs Current Inpatient Medications Medications (Trade) Dose Ordered Sig/Umu Route Start Time Stop Time Status Last Admin Dose Admin Amlodipine Besylate (Norvasc Tab) 10 mg DAILY PO 09/24/16 09:00 10/24/16 08:59 09/24/16 07:41 10 MG Aspirin (Ecotrin Tab) 81 mg DAILY PO 09/24/16 09:00 10/24/16 08:59 09/24/16 07:42 81 MG Fish Oil ([place]-3 (Purified Fish Oil) Cap) 2 gm DAILY PO 09/24/16 09:00 10/24/16 08:59 09/24/16 07:42 2 GM Losartan Potassium 25 mg 25 mg DAILY PO 09/24/16 09:00 10/24/16 08:59 09/24/16 07:41 25 MG Piperacillin Sod/ Tazobactam Sod/ Dextrose (Zosyn Iv/D5 100ml) 115 ml @ 28.75 mls/ hr Q8H IV 09/24/16 04:00 10/01/16 03:59 09/24/16 12:04 28.75 MLS/HR Enoxaparin Sodium (Lovenox Inj) 40 mg Q24H SC 09/24/16 08:00 10/24/16 07:59 09/24/16 07:42 40 MG Acetaminophen (Tylenol Tab) 650 mg Q4H PRN PO 09/23/16 23:00 10/23/16 22:59 09/24/16 10:07 650 MG Al Hydrox/Mg Hydrox/Simethicone (Maalox Max Susp) 15 ml Q4H PRN PO 09/23/16 23:00 10/23/16 22:59 Magnesium Hydroxide (Milk Of Magnesia Susp) 30 ml Q12H PRN PO 09/23/16 23:00 10/23/16 22:59 Zolpidem Tartrate (Ambien Tab) 5 mg HSZ PRN PO 09/23/16 23:00 10/23/16 22:59 Ondansetron HCl (Zofran Inj) 4 mg Q6H PRN IV 09/23/16 23:00 10/23/16 22:59 Polyethylene 17 gm 17 gm DAILY PRN PO 09/23/16 23:00 10/23/16 22:59 09/24/16 10:10 17 GM Levofloxacin 750 mg/Prmx 150 ml @ 100 mls/hr Q24H IV 09/24/16 22:00 09/30/16 21:59 Potassium Chloride/Dextrose/ Sod Cl (D5nss + 20meq KCl) 1,000 ml @ 100 mls/hr Q10H IV 09/24/16 01:30 09/24/16 21:29 09/24/16 11:16 100 MLS/HR Piperacillin Sod/ Tazobactam Sod (Consult) 1 ea UD PRN N/A 09/24/16 02:45 10/24/16 02:44 Levalbuterol (Xopenex 1.25MG/ 0.5ML Neb) 1.25 mg Q6R INH 09/24/16 15:00 10/24/16 14:59 09/24/16 14:02 1.25 MG Oseltamivir Phosphate 75 mg 75 mg BID PO 09/24/16 21:00 09/29/16 08:59 Vancomycin HCl/ Sodium Chloride (Vancomycin Inj/ Nss 250ml) 270 ml @ 125 mls/hr Q12 IV 09/24/16 21:00 10/01/16 20:59 UNV Physical Exam General Appearance: WD/WN, + mild distress Eyes: normal inspection, PERRL ENT: hearing grossly normal Neck: supple, no JVD Respiratory/Chest: + crackles (mid zone and left base. no wheeze.) Cardiovascular: regular rate, rhythm, no murmur Abdomen: normal bowel sounds, non tender, soft Extremities: non-tender, no pedal edema Neurologic/Psychiatric: alert, normal mood/affect, oriented x 3 Skin: no rash Laboratory Results Last 24 Hours Test 09/23/16 21:43 09/23/16 21:58 09/23/16 22:04 09/23/16 22:20 Influenza Type A (RT-PCR) Neg for Influ A Influenza Type B (RT-PCR) Neg for Influ B White Blood Count 19.05 K/uL Red Blood Count 4.41 M/uL Hemoglobin 13.0 g/dL Hematocrit 36.3 % Mean Corpuscular Volume 82.3 fL Mean Corpuscular Hemoglobin 29.5 pg Mean Corpuscular Hemoglobin Concent 35.8 g/dl Platelet Count 323 K/uL Mean Platelet Volume 10.4 fL Neutrophils (%) (Auto) 92.0 % Lymphocytes (%) (Auto) 5.8 % Monocytes (%) (Auto) 1.4 % Eosinophils (%) (Auto) 0.0 % Basophils (%) (Auto) 0.1 % Neutrophils # (Auto) 17.52 K/uL Lymphocytes # (Auto) 1.11 K/uL Monocytes # (Auto) 0.26 K/uL Eosinophils # (Auto) 0.00 K/uL Basophils # (Auto) 0.02 K/uL RDW Standard Deviation 42.9 fL RDW Coefficient of Variation 14.1 % Immature Granulocyte % (Auto) 0.7 % Immature Granulocyte # (Auto) 0.14 K/uL Dohle Bodies 1+ Sodium Level 134 mmol/L Potassium Level 3.7 mmol/L Chloride Level 97 mmol/L Carbon Dioxide Level 25 mmol/L Anion Gap 12.0 mmol/L Blood Urea Nitrogen 18 mg/dl Creatinine 1.20 mg/dl Est Creatinine Clear Calc Drug Dose 60.8 ml/min Estimated GFR () 71.6 Estimated GFR (Non- 61.8 BUN/Creatinine Ratio 14.8 Random Glucose 103 mg/dl Calcium Level 8.0 mg/dl Total Bilirubin 0.5 mg/dl Direct Bilirubin 0.2 mg/dl Aspartate Amino Transf (AST/SGOT) 31 U/L Alanine Aminotransferase (ALT/SGPT) 30 U/L Alkaline Phosphatase 156 U/L Total Protein 7.4 gm/dl Albumin 2.4 gm/dl Bedside Lactic Acid Venous 1.18 mmol/L Bedside Troponin I 0.020 ng/ml Test 09/24/16 07:08 09/24/16 10:42 09/24/16 11:20 09/24/16 14:35 White Blood Count 17.97 K/uL Red Blood Count 4.06 M/uL Hemoglobin 11.4 g/dL Hematocrit 33.0 % Mean Corpuscular Volume 81.3 fL Mean Corpuscular Hemoglobin 28.1 pg Mean Corpuscular Hemoglobin Concent 34.5 g/dl RDW Standard Deviation 41.9 fL RDW Coefficient of Variation 14.1 % Platelet Count 310 K/uL Mean Platelet Volume 10.0 fL Sodium Level 133 mmol/L Potassium Level 3.8 mmol/L Chloride Level 96 mmol/L Carbon Dioxide Level 26 mmol/L Anion Gap 11.0 mmol/L Blood Urea Nitrogen 13 mg/dl Creatinine 1.20 mg/dl Est Creatinine Clear Calc Drug Dose 60.8 ml/min Estimated GFR () 71.6 Estimated GFR (Non- 61.8 BUN/Creatinine Ratio 10.9 Random Glucose 121 mg/dl Calcium Level 7.6 mg/dl Magnesium Level 2.3 mg/dl Arterial Blood pH 7.52 Arterial Blood Partial Pressure CO2 27 mmHg Arterial Blood Partial Pressure O2 76 mm/Hg Arterial Blood HCO3 22 mmol/L Arterial Blood Oxygen Saturation 94.7 % Arterial Blood Base Excess 0.1 mEq/L Arterial Blood Gas Delivery 4L Prudencio Test POS Assessment and Plan 66 yo M with shortness of breath, cough, and fatigue for 8 days - community acquired vs atypical pneumonia. Was started on Augmentin as outpatient and here placed on Levaquin, and Zosyn, had a further fever this AM. Acute Hypoxic Respiratory Failure sec to pneumonia. - ABG ordered - Hypoxic and hypocapnic with respiratory alkalosis - Oxygen - Treat underlying illness Pneumonia (CAP vs Atypical) vs Influenza vs Vasculitis - Continue Levaquin, Vanc, and Zosyn - Pulm consult - appreciate Dr Lawson's recommendations - Repeat CXR this AM same as prior - Sputum culture - Repeat blood cultures - If worsens overnight, would transfer to ICU for further respiratory support Ileus - AXR this AM - ileus, passing small amounts of stool - Lactulose, received Miralax P A Fib - EKG on admission showed A fib with RVR - Will order echo, cards consult, and discuss anticoagulation with patient - Cardiac monitoring CODE STATUS: FULL VTE: SCDs, Heparin DISPO: TELE Resident Tracking Resident Involvement: Resident Care Provided Care Provided: Adult Hospital Medicine Reviewed: Pt Seen/Exam by Me History 66 y/o M who had been having fatigue and lethargy for about >2 wks presented with worsening shortness of breath over a wk and noted to have extensive infiltrate on xray and hypoxia Constitutional: acknowledges: fever Respiratory: positive: short of breath Cardiovascular: denies chest pain Gastrointestinal/Abdominal: positive: constipation General Appearance: moderate distress (respiratory) Ears, Nose, Throat: hearing grossly normal Respiratory: respiratory distress, decreased breath sounds Cardiovascular: regular rate, rhythm Gastrointestinal: normal bowel sounds, non tender, soft Neurologic/Psychiatric: alert, oriented x 3 Skin Characteristics: warm/dry Assessment/Plan I have reviewed the medical record and performed a history and physical examination of this patient today. I have discussed the case with Dr. Vasquez. The above note reflects my findings, conclusions, and recommendations.
[2016-09-24] MEDS: LEVALBUTEROL 1.25MG/0.5ML NEB INH SCH ×2 (14:02→18:17)
--- NOTE | 2016-09-24 15:02 | Progress Note ---
Progress Note ID Consult Dictated #[id number] A/P: 1. CAP -Add vanco pending sputum and blood cultures -legionella antigen -Follow cultures, continue supportive care -Will follow, thank you
[2016-09-24] MEDS ORDERED: VANCOMYCIN CONSULT ACTIVE PRN (15:30)
--- NOTE | 2016-09-24 15:33 | Pharmacy Progress Note ---
Pharmacy Antibiotic Consult Date of Service: Sep 24, 2016. Pharmacy Dosing Scope Pharmacy is consulted to initiate Vancomycin and Zosyn IV dosing therapy, order appropriate labs and adjust drug dose/frequency. Subjective The patient is a 66 year old male admitted on Sep 23, 2016 at 23:14. Objective Height (Feet): 5 Height (Inches): 10.00 Weight (Kilograms): 83.800 Lab Results (24hrs): Laboratory Tests Test 09/23/16 21:58 09/24/16 07:08 BUN/Creatinine Ratio 14.8 10.9 Blood Urea Nitrogen 18 mg/dl 13 mg/dl Creatinine 1.20 mg/dl 1.20 mg/dl White Blood Count 19.05 K/uL 17.97 K/uL Red Blood Count 4.41 M/uL Hemoglobin 13.0 g/dL Hematocrit 36.3 % Mean Corpuscular Volume 82.3 fL Mean Corpuscular Hemoglobin 29.5 pg Mean Corpuscular Hemoglobin Concent 35.8 g/dl Platelet Count 323 K/uL Mean Platelet Volume 10.4 fL Neutrophils (%) (Auto) 92.0 % Lymphocytes (%) (Auto) 5.8 % Monocytes (%) (Auto) 1.4 % Eosinophils (%) (Auto) 0.0 % Basophils (%) (Auto) 0.1 % Neutrophils # (Auto) 17.52 K/uL Lymphocytes # (Auto) 1.11 K/uL Monocytes # (Auto) 0.26 K/uL Eosinophils # (Auto) 0.00 K/uL Basophils # (Auto) 0.02 K/uL Micro Results: Item Value Date Time Blood Culture Received 09/24/16 1133 Blood Pending Blood Culture Received 09/24/16 1120 Blood Pending Gram Stain Received 09/24/16 0900 Sputum Expectorated Sputum Pending Blood Culture Received 09/23/16 2158 Blood Pending Blood Culture Received 09/23/16 2150 Blood Pending Assessment & Plan * 66 yo male admitted with CAP. ID is consulted and added Vancomycin to antibiotic regimen of Levaquin IV and Zosyn IV. Pharmacy on board already for Zosyn dosing. Vancomycin: * Start with loading dose of Vancomycin 2100 mg (25mg/kg) IV x 1 now. * Estimated half life is 12 hours. Lacks significant risk factors for drug accumulation. * Then begin maintenance dose of Vancomycin 1250mg (15mg/kg) IV [id number]. * Will obtain trough prior to the 4th maintenance dose on 09/27/16 at 0000. * Goal trough 15-20 mcg/ml. Zosyn: * He received Zosyn 4.5gm IV bolus x 1 yesterday. * Pt now receiving Zosyn 3.375gm IV [id number] EI for BMI < 35 kg/m2, non-ICU status, and Crcl > 20 ml/min. Levaquin: * Continue per provider dosing. Pharmacy will continue to follow and will adjust dose/frequency as necessary. Thank you
[2016-09-24] MEDS ORDERED: VANCOMYCIN INJ 2,100 MG in SODIUM CHLORIDE 0.9% 500ML 500 ML IV ONE (15:45)
[2016-09-24] MEDS ORDERED: PNEUMOCOCCAL ADMINISTRATION CHARGE ONE (15:45)
[2016-09-24] MEDS ORDERED: PNEUMOCOCCAL POLYSACCHARIDES 25 MCG/0.5 ML VIAL/SYR IM. ONE (15:45)
--- NOTE | 2016-09-24 17:11 | PULMONARY CONSULTATION ---
DATE OF CONSULTATION: 09/24/2016 HISTORY OF PRESENT ILLNESS: The patient is a 66-year-old male who was admitted to the hospital with bilateral pneumonia and Dr. Vasquez has asked me to evaluate this patient from a pulmonary standpoint. The patient actually is very active, had [place] about 12 days and does a great deal of cross-country skiing. He had developed respiratory tract infection in early August, characterized by rhinitis and mild sore throat. He did not have a cough or chest pain, muscle aches. That resolved. He then around 02 of September went to [place], [place] and spent a week skiing. He stayed with his who has not been ill. There was no musty smell in his room. Of course, there was no air conditioning in [place] in August. He was with about 20 other people and some of them were ill but he did not have a great exposure to them. A week ago, Saturday, which was 9 days ago, he developed cough, fever and some mild shortness of breath. He was then seen in the Emergency Room, September 22 and was afebrile at that time. Oxygen saturation looked good at 94-96% on room air, blood pressure was stable at 122/70. Chest x-ray revealed bilateral mid lung field pulmonary infiltrates. White count was 14.6, hematocrit 36% with slight increase in the neutrophils. Did have mild hyponatremia with sodium of 133. Influenza antigens for A and B were negative. Slight elevation of alkaline phosphatase as well. Lactate level was normal. Urinalysis revealed +3 blood, revealed a few inflammatory cells and red blood cells. He was placed on Augmentin after being evaluated by Dr. Almazan which was certainly appropriate and sent home. He got worse with fevers and then reported to the Emergency Room once again on the . He was seen by Dr. Davis. All the cultures so far have been unremarkable. He had temp up to 101.4 on the date of admission. Since admission, he was placed on Zosyn and has had fever up to 38.2 this morning at 0715 hours. Last night he had some tachycardia and at the time of admission did have a short run of atrial fibrillation which had converted. The electrocardiogram revealed atrial fib. Nonetheless, at this point, he states he feels just slightly better and certainly not worse. He did receive Levaquin last night at about 2200 hours, 750 mg and was continued on Zosyn at good doses. He denies significant aspiration, although his states that occasionally he will cough when eating. He has not had any upper airway symptoms. He is not a tobacco user, has not had any exposures. He has no pets at home, has not been exposed to any birds. He has not had any industrial exposures. From a respiratory standpoint, he is very healthy. He remains very active. An extensive history was obtained and I could not find anything else in his history to be significant. He has had Lyme disease and was treated twice in the remote past. PAST MEDICAL HISTORY: Positive for hypertension and has had a cholecystectomy in [address] Thibodeaux and at that time, a chest x-ray on 06/09/2015 was normal. His PRP looked good. Liver function studies were improving at that time. There is no history of TB exposure. Past medical history is significant for hypertension as well. PAST SURGICAL HISTORY: Cholecystectomy. FAMILY HISTORY: Father at age 92 from old age. Mother at age 66 from an IA. He is , has several children in good health. He is originally from [place], moved up to this area at [place] last year. He remains very active hiking and skiing. 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 SOCIAL HISTORY: He only smoked for about 2 years to 5 years back in the 20s. He is not an alcohol user. ALLERGIES: None. MEDICATIONS: Noted. He did not have significant improvement with the Augmentin and only took 3 doses of that before he came into the hospital this time. PHYSICAL EXAMINATION: VITAL SIGNS: He does not appear ill with a respiratory rate of 18. His blood pressure is 121/73, oxygen saturation 93% on 4 liters. He did have a temperature of 38.2 this morning at 0715 hours. HEENT: Unremarkable. No telangiectasia is noted. Conjunctivae of the eyes are normal. Nose exam and posterior pharynx normal. NECK: There is no neck vein distention or HJR. No bruits are auscultated. Thyroid is normal to palpation. His supraclavicular, axillary spaces revealed no adenopathy. CHEST: Expansion of the thorax is normal with deep inspiration. BREASTS: Exam normal. HEART: Regular rate and rhythm. No murmurs are heard. LUNGS: Reveal just some coarse breath sounds at the lung bases, mostly in the mid lung portillo posterior. No wheezing, crackles or rales noted. There is no fremitus or dullness to percussion. ABDOMEN: Soft, nontender. Liver and spleen are normal. EXTREMITIES: He has no cyanosis, clubbing or edema. LABORATORY DATA: White count is down from 19.05 to 17.97, hemoglobin, hematocrit 11.4 and 33% with no significant eosinophilia noted. Blood gas today at 10:42 revealed pH 7.52, pCO2 27, pO2 76, suggestive of respiratory alkalosis with widening of the AA gradient which would be certainly consistent with his pneumonia. Sodium is 133 and he has been on hydrochlorothiazide as an outpatient. BUN, creatinine, liver function studies look good. Alkaline phosphatase is elevated at 156. Troponin is unremarkable. The electrocardiogram revealed atrial fibrillation, apparently by the monitor strips, that has resolved. Blood cultures from the 4th, when he was evaluated in the Emergency Room, are negative. Sputum Gram stain is pending. Second set of blood cultures is pending as well. Chest x-ray reveals bilateral airspace opacities in the right upper lobe superior segment, right lower lobe and probable right middle lobe and in the left lower lobe. I believe the lingula and left upper lobe are spared. He does have a bit of tympany on abdominal exam and x-ray of the abdomen revealed some gaseous distention of the small bowel and colon, suggestive of an ileus. Multifocal airspace consolidation of both lung bases is noted as well. IMPRESSION: 1. Respiratory insufficiency related to bilateral pneumonia. 2. Bilateral pneumonia. His exam and presentation with fever and leukocytosis are consistent with pneumococcal pneumonia bilaterally. He does seem to be improved after 1 dose of Levaquin and continued use of Zosyn along with oxygen and his inhalers. 3. Hyponatremia, off hydrochlorothiazide. This certainly could be consistent with an atypical pneumonia such as Legionnaire's and he did spend some time in a hotel in [place], [place] although usually this time of year, Legionnaire's is not very common. 4. Hypertension. 5. Acute atrial fibrillation converted. RECOMMENDATIONS: 1. Continue his present medications. 2. Check urine Legionella titer and a serum mycoplasma titer. 3. Continue on the Levaquin. 4. I am not sure that Tamiflu would be very helpful. His influenza swabs were unremarkable and he is more than 2 days into the disease at this point. 5. It is interesting that he has significant hematuria from his urinalysis from the 4th. It would make one consider vasculitis as a presentation like this, especially with essentially unremarkable pulmonary examination and diffuse patchy infiltrates. I would suggest repeating a urinalysis and perhaps doing a sed rate as well. Infectious disease consultation has been ordered. Thanks for asking me to evaluate Mr. Farooq. I would be glad to follow along with you during his hospital stay.
[2016-09-24 17:16] LABS: THYROID STIMULATING HORMONE 1.41 uIu/ml (0.300-4.500)
[2016-09-24] MEDS: OSELTAMIVIR PHOSPHATE 75 MG CAP PO SCH (19:41)
--- NOTE | 2016-09-24 22:06 | INFECT. DISEASE CONSULTATION ---
DATE OF CONSULTATION: 09/24/2016 REQUESTING PHYSICIAN: Dr. Bajwa. HISTORY OF PRESENT ILLNESS: This is a 66-year-old gentleman who became acutely ill at home within the past 3-4 days. He was seen by his primary care physician and placed on a course of Augmentin for suspected upper respiratory infection. After 2 or 3 doses he continued to have worsening cough, shortness of breath, overall weakness and subjective fevers and chills. For this reason, he was brought to the hospital. He did have a chest x-ray which showed bilateral infiltrates. He was subsequently admitted to the hospital. He has been febrile since admission to the hospital. His current temperature is his T-max in the 38.2 degrees. He was started on empiric Levaquin and Zosyn and also was placed on Tamiflu. His white blood cell count was 19 on admission and has improved to 17.9 today. A rapid flu antigen was negative and mycoplasma testing is pending. Blood and sputum cultures are pending. He is tolerating antibiotics well. He currently states he feels warm and feverish. He does appear somewhat uncomfortable on exam. His family is present with him. He states overall he is feeling better but certainly is not at baseline. He continues to complain of fevers and chills. He does continue to have shortness of breath but is much improved. He currently is on O2 nasal cannula oxygen and states this has improved. He denies any productive cough or hemoptysis. He denies any pleuritic chest pain. He denies nausea, vomiting, diarrhea or abdominal pain. His appetite has been poor since his symptoms began. He has no urinary complaints. He denies any sick contacts. He did have a flu vaccine this year. All remaining review of systems are reviewed and are negative except what is noted above. PAST MEDICAL HISTORY: Significant for hypertension and hyperlipidemia. PAST SURGICAL HISTORY: Significant for cholecystectomy in 2015. FAMILY HISTORY: Noncontributory. SOCIAL HISTORY: Significant for history of tobacco use. He is retired. He denies any sick contacts or travel; recently he did have a flu shot. ALLERGIES: He has no known drug allergies. CURRENT MEDICATIONS: Include levofloxacin, Tamiflu, Xopenex, Norvasc, Ecotrin, fish oil, Cozaar, Lovenox, Zosyn, potassium, Tylenol, Maalox, milk of magnesia, Ambien, Zofran, MiraLax. PHYSICAL EXAMINATION: VITAL SIGNS: Temperature is 36.6, T-max is 38.2 at 7:00 this morning, pulse 103, respiratory rate 18, blood pressure of 121/73, oxygen saturation is 92-94% on 4 liters nasal cannula. GENERAL: He is awake, alert and oriented x3. He is not diaphoretic. HEENT: Mucous membranes are dry. HEART: Regular and tachycardic. LUNGS: Have decreased breath sounds bilaterally. ABDOMEN: Soft, nontender, nondistended. There is no edema. SKIN: Without rash. LABORATORY STUDIES: CBC today reveals a white blood cell count of 17.9 down from 19.0 yesterday, hemoglobin 11.4, hematocrit 33, platelets 310. ESR is pending. Chemistry panel reveals a sodium of 133, potassium 3.8, chloride 96, bicarbonate 26, BUN 13, creatinine 1.2, glucose 121. LFTs are within normal limits on admission. Flu swab was negative. Mycoplasma antibodies are pending as the PCR, I do not believe has been ordered. Blood cultures and sputum cultures are pending. IMAGING DATA: Chest x-ray done this morning shows multifocal bilateral airspace consolidation which is unchanged and likely represents multifocal pneumonia. Abdominal x-ray was done today as well and shows extension of the small bowel colon, suggesting ileus. ASSESSMENT AND PLAN: 1. Community-acquired pneumonia. At this time, I would continue him empirically on broad-spectrum antibiotics pending the results of blood and sputum cultures. He is on Tamiflu for suspicion of influenza. PCR should be obtained as well. I will add vancomycin to his current regimen of antibiotics pending the results of his blood and sputum cultures. He will continue with supportive care. We will follow along with you. Thank you for this consultation. JOSE
[2016-09-24] MEDS: LEVOFLOXACIN / D5W 750 MG in PREMIXED IN D5W 150 ML IV SCH (22:37)
[2016-09-24 23:04] LABS: URINE APPEARANCE CLOUDY (CLEAR); URINE BILIRUBIN NEG (NEG); URINE COLOR DK YELLOW; URINE EPITHELIAL CELL AUTO >30 /lpf (0-5); URINE NITRITE NEG (NEG); URINE SPECIFIC GRAVITY 1.018 (1.000-1.030); UROBILINOGEN NEG (NEG)
[2016-09-24 23:05] LABS: MANUAL MICROSCOPIC REQUIRED? NO; REVIEW REQ? YES
[2016-09-24 23:11] LABS: URINE PATH CASTS 5-10 GRANULAR CASTS /lpf (0)
[2016-09-25] VITALS (12 sets, daily range): BP systolic 127–136; BP diastolic 63–82; PULSE 83–105; TEMP 36.7–37.4; O2SAT 88–93
--- NOTE | 2016-09-25 00:22 | CARDIOLOGY CONSULTATION REPORT ---
DATE OF CONSULTATION: 09/24/2016 REASON FOR CONSULTATION: New onset Atrial Fibrillation. HISTORY OF PRESENT ILLNESS: Mr. Farooq is a 66-year-old white male with a history of hypertension, dyslipidemia and prior tobacco use, who presented acutely on 09/23/2016 complaining of fever, chills, progressive shortness of breath, cough, and he was noted to be hypoxic with a respiratory alkalosis. Chest x-ray revealed bilateral community-acquired pneumonia which has gotten progressively worse over the past 24 hours. His sedimentation rate is greater than 90 mm per hour and he continues to complain of dyspnea. The patient denies any prior cardiac history or prior cardiac events. He denies having any palpitations or sensation that his heart was racing. He further denies any chest pain, heaviness, tightness or pressure. He has not had any nausea or vomiting or diaphoresis. He was noted to be in atrial fibrillation in the emergency room with a mildly elevated ventricular response rate. The patient subsequently converted back to a normal sinus rhythm on his own as of 540 this morning. At the present time, he is being seen in room 288, bed 1. He complains of ongoing dyspnea but has not had any chest discomfort, palpitations, tachy palpitations or fast pulse rates to his knowledge. MEDICATIONS: 1. Vancomycin 1250 mg IV q. 14 hours. 2. Levofloxacin 750 mg IV q. 24 hours. 3. Tamiflu 75 mg b.i.d. 4. Xopenex 1.25 mg nebulized q. 6 hours. 5. Amlodipine 10 mg daily. 6. Aspirin 81 mg a day. 7. Fish oil capsules 2 grams daily. 8 . Losartan 25 mg daily. 9. Lovenox 40 mg subcutaneous injection q. 24 hours. 10. Zosyn 3.375 grams IV q. 8 hours. 11. D5 half normal saline with potassium chloride at 100 mL/hour. 12. Tylenol p.r.n. 13. Maalox Max p.r.n. 14. Milk of magnesia p.r.n. 15. Ambien 5 mg at bedtime p.r.n. for sleep. 16. Zofran 4 mg IV q. 6 hours p.r.n. 17. MiraLax powder 17 grams daily as needed for constipation. ALLERGIES: NKDA. PAST MEDICAL HISTORY: 1. Hypertension. 2. Dyslipidemia. 3. History of acute cholecystitis, status post cholecystectomy in 2015. 4. Currently with bilateral pneumonia, community acquired. 5. He specifically denies any history of CHF, CAD, [place], rheumatic fever, stroke or mini stroke. No history of vascular disease. He is not diabetic. SOCIAL HISTORY: The patient is a former smoker. He is single, retired from work. FAMILY HISTORY: Father at the age of 92, advanced age. Mother at the age of 66 from myocardial infarction. PHYSICAL EXAMINATION: VITAL SIGNS: Temperature is 38.2 degrees Celsius, pulse is 105 beats per minute and regular, respiratory rate is 20 and somewhat labored, blood pressure is 147/74, SpO2 is 93% on 4 liters of oxygen via nasal cannula. HEENT: Head is atraumatic, normocephalic. EOMs intact. Sclerae anicteric. Face is symmetric. No perioral cyanosis. NECK: Without thyromegaly, adenopathy or JVD. Carotid upstrokes +2 bilaterally. CHEST AND LUNGS: With diffuse bilateral crackles which lessened toward the apices. CARDIOVASCULAR: S1 and S2 are regular, tachycardic at a rate of 105 beats per minute. No obvious murmur, gallop or rub. PMI is nondisplaced. No lifts, heaves or thrills. No abdominal, aortic or renal bruits. ABDOMEN: Bowel sounds are present. EXTREMITIES: Without clubbing, cyanosis or edema. NEUROLOGIC: The patient is awake, alert and interactive. Answers questions appropriately. Speech is clear. Normal movement in all four extremities. LABORATORIES: White blood cell count is 17.97, hemoglobin 11.4 g/dL, hematocrit 33.0%, platelet count 310,000. Sedimentation rate is greater than 90 mm/hour. Sodium is 133 mmol/liter, potassium 3.8 mmol/liter, BUN 13 mg/dL, creatinine 1.20 mg/dL, random glucose 121 mg/dL. TSH and T4 are pending. Serum magnesium level is normal at 2.3 mg/dL. ABGs done earlier today show a pH of 7.52, pCO2 of 27, pO2 of 76 and an HCO3 of 22. Chest x-ray done earlier today shows multifocal bilateral airspace consolidation, consistent with multifocal pneumonia. ASSESSMENT: 1. Bilateral community-acquired pneumonia manifested as fever, chills, hypoxemia, marked leukocytosis with leftward shift, respiratory alkalosis. 2. Newly diagnosed Paroxysmal Atrial Fibrillation, status post spontaneous conversion to normal sinus rhythm earlier today, likely precipitated by hyperadrenergic state secondary to current acute illness. 3. Hypertension. 4. Hypercholesterolemia. 5. CHADs Vasc score is 2 based on age and hypertension. 6. No signs or symptoms of stroke or mini stroke. 7. No angina pectoris or anginal equivalent symptoms. 8. No signs or symptoms of heart failure. PLAN: 1. The patient most likely developed atrial fibrillation secondary to the physiologic stress of his current illness. He has significant bilateral pneumonia as stated above. Currently receiving multiple broad-spectrum antibiotics and receiving supplemental oxygen. 2. The patient has spontaneously converted back to a normal sinus rhythm on his own as of 0540 this morning. 3. Could consider adding a low-dose beta-kelvin; however, with his tenuous respiratory status, would not do that now. 4. Increase Lovenox dosage to an appropriate therapeutic dose. 5. Would recommend starting him on Eliquis 5 mg b.i.d. upon discharge. He will most likely be on this for one month, and if no recurrent atrial fibrillation, we will likely discontinue Eliquis. 6. Ongoing treatment of underlying acute infectious illness. 7. Based on his degree of dyspnea / gasping - recommend transfer to unit. 8. We will continue to follow. Patient seen and examined by me in conjunction with Mr. Devlin. Agree that atrial fibrillation secondary to stress of acute illness. He has spontaneously converted to NSR. He now has a sinus tachycardia which reflects the stress of his acute illness. Agree with above plan. Once he has cleared his acute illness (BL pneumonia) can stop anticoagulation unless evidence of recurrent atrial fibrillation. Thank you, Maranda Avelar MD. JOSE
[2016-09-25] MEDS: LEVALBUTEROL 1.25MG/0.5ML NEB INH SCH ×4 (01:56→20:36)
[2016-09-25] MEDS: PIPERACILL/TAZOBAC IV 3.375 GM in DEXTROSE 5% 100ML 100 ML IV SCH ×2 (04:36→11:52)
[2016-09-25] MEDS ORDERED: VANCOMYCIN INJ 1,250 MG in SODIUM CHLORIDE 0.9% 250ML 250 ML IV SCH ×2 (06:00→18:00)
[2016-09-25 06:39] LABS: BASO % 0.1 %; BASO ABS # 0.01 K/uL (0-0.2); COMPLETE YES; EOS % 0.1 %; HEMATOCRIT 31.6 % (42-52); IG% 0.3 %; LYMPH % 9.3 %; LYMPH ABS # 1.35 K/uL (1.2-3.4); MEAN CELL VOLUME 81.4 fL (80-100); MEAN CORPUSCULAR HEMOGLOBIN 27.8 pg (25-34); MEAN CORPUSCULAR HGB CONC 34.2 g/dl (32-36); MEAN PLATELET VOLUME 10.1 fL (7.4-10.4); MONO % 2.1 %; NEUT % 88.1 %; PLATELET COUNT 346 K/uL (130-400); RED BLOOD COUNT 3.88 M/uL (4.7-6.1); WHITE BLOOD COUNT 14.48 K/uL (4.8-10.8)
--- NOTE | 2016-09-25 06:45 | Clinical Documentation Query ---
CLINICAL DOCUMENTATION QUERY 66-y/o male who presents with acute respiratory failure 2/2 failed outpatient treatment of pneumonia. In your clinical opinion is this patient being managed for: ( ) Suspected Gram negative or Staphylococcal pneumonia treated with IV Levofloxacin, Zosyn, and Vancomycin ( ) Other explanation of clinical findings (Please Explain) ( x ) Unable to determine (Please Define) - pending cultures and legionella titer ( ) Need to Discuss ( ) Not Agree The medical record reflects the following clinical findings, treatment, and risk factors. Clinical Indicators: Worsening of symptoms despite outpatient treatment. Fever 38.2, Afib RVR 112, hypoxia 88%, Progressive airspace opacities by CXR, Leukocytosis 19.05, with Neut 92.0%. Treatment: IV Vancomycin, IV Levofloxacin, IV Zosyn, Risk Factors: Age Please clarify and document your clinical opinion in the progress notes and discharge summary. Terms such as "probable", "suspected", "likely", "questionable", "possible", or "still to be ruled out" are acceptable. IF IN AGREEMENT, YOU MUST DOCUMENT ABOVE DIAGNOSTIC STATEMENT IN DAILY PROGRESS NOTES AND DISCHARGE SUMMARY. This document is not part of the patient's record. Thank You, Tawanda Saunders, MATTY [phone]
--- NOTE | 2016-09-25 06:50 | Clinical Documentation Query ---
CLINICAL DOCUMENTATION QUERY 66-y/o male who presents with acute respiratory failure 2/2 failed outpatient treatment of pneumonia. In your clinical opinion is this patient being managed for: (x ) Suspected Gram negative or Staphylococcal pneumonia treated with IV Levofloxacin, Zosyn, and Vancomycin ( ) Other explanation of clinical findings (Please Explain) ( ) Unable to determine (Please Define) ( ) Need to Discuss ( ) Not Agree The medical record reflects the following clinical findings, treatment, and risk factors. Clinical Indicators: Worsening of symptoms despite outpatient treatment. Fever 38.2, Afib RVR 112, hypoxia 88%, Progressive airspace opacities by CXR, Leukocytosis 19.05, with Neut 92.0%. Treatment: IV Vancomycin, IV Levofloxacin, IV Zosyn, Risk Factors: Age Please clarify and document your clinical opinion in the progress notes and discharge summary. Terms such as "probable", "suspected", "likely", "questionable", "possible", or "still to be ruled out" are acceptable. IF IN AGREEMENT, YOU MUST DOCUMENT ABOVE DIAGNOSTIC STATEMENT IN DAILY PROGRESS NOTES AND DISCHARGE SUMMARY. This document is not part of the patient's record. Thank You, Tawanda Saunders, RN [phone]
[2016-09-25 07:06] LABS: BUN/CREATININE RATIO 12.7 (10-20); CALCIUM 7.8 mg/dl (8.5-10.1); CREATININE 0.93 mg/dl (0.60-1.40); POTASSIUM 3.4 mmol/L (3.5-5.1)
[2016-09-25 07:09] LABS: ALB/GLOB RATIO 0.4 (0.9-2)
[2016-09-25] MEDS: ENOXAPARIN 120 MG/0.8 ML SYR SC SCH (08:00)
--- NOTE | 2016-09-25 08:29 | Family Medicine Progress Note ---
Progress Note Date of Service Sep 25, 2016. Subjective Pt evaluation today including: conversation w/ patient, conversation w/ family , physical exam Reports he feels much better today. reports he looked better around 6:30pm yesterday. Oxygen now at 2L NC. Still not producing much sputum. Denies any chest pain. Still constipated despite Miralax/ Lactulose. Constitutional: + fever (Tmax 38.2 at 16:00 yesterday), No chills, No sweats , No weakness, No weight loss Eyes: No worsening of vision ENT: No hearing loss Respiratory: + dyspnea on exertion, + shortness of breath, No cough, No sputum, No wheezing Cardiovascular: No chest pain All Other Systems: Reviewed and Negative Medications Current Inpatient Medications Medications (Trade) Dose Ordered Sig/Umu Route Start Time Stop Time Status Last Admin Dose Admin Amlodipine Besylate (Norvasc Tab) 10 mg DAILY PO 09/24/16 09:00 10/24/16 08:59 09/24/16 07:41 10 MG Aspirin (Ecotrin Tab) 81 mg DAILY PO 09/24/16 09:00 10/24/16 08:59 09/24/16 07:42 81 MG Fish Oil (Rosholt-3 (Purified Fish Oil) Cap) 2 gm DAILY PO 09/24/16 09:00 10/24/16 08:59 09/24/16 07:42 2 GM Losartan Potassium 25 mg 25 mg DAILY PO 09/24/16 09:00 10/24/16 08:59 09/24/16 07:41 25 MG Piperacillin Sod/ Tazobactam Sod/ Dextrose (Zosyn Iv/D5 100ml) 115 ml @ 28.75 mls/ hr Q8H IV 09/24/16 04:00 10/01/16 03:59 09/25/16 04:36 28.75 MLS/HR Acetaminophen (Tylenol Tab) 650 mg Q4H PRN PO 09/23/16 23:00 10/23/16 22:59 09/24/16 15:43 650 MG Al Hydrox/Mg Hydrox/Simethicone (Maalox Max Susp) 15 ml Q4H PRN PO 09/23/16 23:00 10/23/16 22:59 Magnesium Hydroxide (Milk Of Magnesia Susp) 30 ml Q12H PRN PO 09/23/16 23:00 10/23/16 22:59 Zolpidem Tartrate (Ambien Tab) 5 mg HSZ PRN PO 09/23/16 23:00 10/23/16 22:59 Ondansetron HCl (Zofran Inj) 4 mg Q6H PRN IV 09/23/16 23:00 10/23/16 22:59 Polyethylene 17 gm 17 gm DAILY PRN PO 09/23/16 23:00 10/23/16 22:59 09/24/16 10:10 17 GM Levofloxacin/Prmx (Levaquin / D5W/ Premixed D5W) 150 ml @ 100 mls/hr Q24H IV 09/24/16 22:00 09/30/16 21:59 09/24/16 22:37 100 MLS/HR Piperacillin Sod/ Tazobactam Sod (Consult) 1 ea UD PRN N/A 09/24/16 02:45 10/24/16 02:44 Levalbuterol (Xopenex 1.25MG/ 0.5ML Neb) 1.25 mg Q6R INH 09/24/16 15:00 10/24/16 14:59 09/25/16 07:49 1.25 MG Oseltamivir Phosphate 75 mg 75 mg BID PO 09/24/16 21:00 09/29/16 08:59 09/24/16 19:41 75 MG Vancomycin HCl/ Sodium Chloride (Vancomycin Inj/ Nss 250ml) 275 ml @ 125 mls/hr Q14H IV 09/25/16 06:00 10/02/16 05:59 09/25/16 05:04 125 MLS/HR Vancomycin HCl (Consult) 1 UD PRN N/A 09/24/16 15:30 10/24/16 15:29 Enoxaparin Sodium (Lovenox Inj) 120 mg Q24H SC 09/25/16 08:00 10/25/16 07:59 Senna (Senokot Tab) 17.2 mg TODAY@0900 ONCE PO 09/25/16 09:00 09/25/16 09:01 Objective Vital Signs Date Time Temp Pulse Resp B/P Pulse Ox O2 Delivery O2 Flow Rate FiO2 09/25/16 07:49 95 18 91 Nasal Cannula 4.0 09/25/16 07:21 36.7 86 20 133/82 90 09/25/16 04:55 36.8 83 22 136/81 93 Nasal Cannula 4.0 09/25/16 04:00 Nasal Cannula 4.0 09/25/16 01:56 99 20 92 Nasal Cannula 4.0 09/25/16 00:01 Nasal Cannula 4.0 09/24/16 23:43 36.8 96 22 146/84 92 Nasal Cannula 4.0 09/24/16 20:17 36.6 91 20 123/65 97 Nasal Cannula 4.0 09/24/16 20:00 93 Nasal Cannula 4.0 09/24/16 18:17 91 18 92 Nasal Cannula 4.0 09/24/16 17:53 37.5 09/24/16 16:16 38.2 79 20 147/74 93 Nasal Cannula 4.0 09/24/16 16:00 93 Nasal Cannula 4.0 09/24/16 14:02 103 18 93 Nasal Cannula 4.0 09/24/16 12:19 Nasal Cannula 4.0 09/24/16 11:28 36.6 102 16 121/73 92 Nasal Cannula 4.0 Physical Exam General Appearance: WD/WN, no apparent distress Eyes: normal inspection, PERRL ENT: hearing grossly normal Neck: supple, no JVD Respiratory/Chest: lungs clear, normal breath sounds (Significantly improved from prior exam), no respiratory distress Cardiovascular: regular rate, rhythm, no murmur Abdomen: normal bowel sounds, non tender, soft, + distended Extremities: non-tender, no pedal edema Neurologic/Psychiatric: alert, normal mood/affect, oriented x 3 Skin: no rash Laboratory Results Last 24 Hours Test 09/24/16 10:42 09/24/16 11:20 09/24/16 14:35 09/25/16 05:40 Arterial Blood pH 7.52 Arterial Blood Partial Pressure CO2 27 mmHg Arterial Blood Partial Pressure O2 76 mm/Hg Arterial Blood HCO3 22 mmol/L Arterial Blood Oxygen Saturation 94.7 % Arterial Blood Base Excess 0.1 mEq/L Arterial Blood Gas Delivery 4L Prudencio Test POS Erythrocyte Sedimentation Rate > 90 mm/hr White Blood Count 14.48 K/uL Red Blood Count 3.88 M/uL Hemoglobin 10.8 g/dL Hematocrit 31.6 % Mean Corpuscular Volume 81.4 fL Mean Corpuscular Hemoglobin 27.8 pg Mean Corpuscular Hemoglobin Concent 34.2 g/dl Platelet Count 346 K/uL Mean Platelet Volume 10.1 fL Neutrophils (%) (Auto) 88.1 % Lymphocytes (%) (Auto) 9.3 % Monocytes (%) (Auto) 2.1 % Eosinophils (%) (Auto) 0.1 % Basophils (%) (Auto) 0.1 % Neutrophils # (Auto) 12.75 K/uL Lymphocytes # (Auto) 1.35 K/uL Monocytes # (Auto) 0.30 K/uL Eosinophils # (Auto) 0.02 K/uL Basophils # (Auto) 0.01 K/uL RDW Standard Deviation 43.7 fL RDW Coefficient of Variation 14.6 % Immature Granulocyte % (Auto) 0.3 % Immature Granulocyte # (Auto) 0.05 K/uL Sodium Level 133 mmol/L Potassium Level 3.4 mmol/L Chloride Level 99 mmol/L Carbon Dioxide Level 23 mmol/L Anion Gap 11.0 mmol/L Blood Urea Nitrogen 12 mg/dl Creatinine 0.93 mg/dl Est Creatinine Clear Calc Drug Dose 78.5 ml/min Estimated GFR () 97.4 Estimated GFR (Non- 84.1 BUN/Creatinine Ratio 12.7 Random Glucose 94 mg/dl Calcium Level 7.8 mg/dl Total Bilirubin 0.4 mg/dl Aspartate Amino Transf (AST/SGOT) 37 U/L Alanine Aminotransferase (ALT/SGPT) 25 U/L Alkaline Phosphatase 114 U/L Total Protein 6.3 gm/dl Albumin 1.9 gm/dl Globulin 4.4 gm/dl Albumin/Globulin Ratio 0.4 Assessment and Plan 66 yo M with shortness of breath, cough, and fatigue for 10 days, found to have bilateral pneumonia now. Was started on Augmentin as outpatient and now on day 2 of Levaquin, Vanc, and Zosyn. Acute Hypoxic Respiratory Failure secondary to pneumonia, - Now on 2L Nasal cannula - Continue to wean O2 as tolerated Bilateral Pneumonia vs Influenza vs Vasculitis - Suspected Gram negative or Staphylococcal pneumonia treated with IV Levofloxacin , Zosyn, and Vancomycin - Continue Levaquin, Vanc, and Zosyn - Legionella antigen and Mycoplasma pending - Will discuss continuing Tamiflu - ESR > 90 - will discuss further workup - Pulm consult - ID Consult - Sputum culture pending - Initial BC negative, repeat cultues from 09/24 pending Ileus - Received Lactulose & Miralax - Will add Senna (2 tablets) today and repeat Lactulose in PM if needed Paroxysmal atrial fibrillation, with CHADS2 = 2 - EKG on admission showed A fib with RVR - Cardiology consult - Cardiac monitoring (currently in NSR) - On Lovenox BID, will transition to Eliquis 5mg BID for 1 month and arrange follow up with Henry Devlin to see if needs to continue CODE STATUS: FULL VTE: SCDs, Lovenox DISPO: TELE Resident Tracking Resident Involvement: Resident Care Provided Care Provided: Adult Hospital Medicine Reviewed: Pt Seen/Exam by Me History breathing better today but still short of breath Constitutional: denies: fever Respiratory: positive: short of breath Cardiovascular: denies chest pain (better ) Gastrointestinal/Abdominal: negative: abdominal pain General Appearance: no apparent distress Respiratory: respiratory distress, crackles (base) Cardiovascular: regular rate, rhythm Gastrointestinal: normal bowel sounds, non tender, soft Neurologic/Psychiatric: alert, oriented x 3 Skin Characteristics: warm/dry Assessment/Plan I have reviewed the medical record and performed a history and physical examination of this patient today. I have discussed the case with Dr. Vasquez. The above note reflects my findings, conclusions, and recommendations.
[2016-09-25] MEDS: ASPIRIN 81 MG ECTAB PO SCH (08:54)
[2016-09-25] MEDS: LOSARTAN POTASSIUM 25 MG TAB PO SCH (08:54)
[2016-09-25] MEDS: OSELTAMIVIR PHOSPHATE 75 MG CAP PO SCH ×2 (08:54→20:16)
[2016-09-25] MEDS: AMLODIPINE BESYLATE 5 MG TAB PO SCH (08:54)
[2016-09-25] MEDS: OMEGA-3 (PURIFIED FISH OIL) 1 GM CAP PO SCH (08:54)
[2016-09-25] MEDS ORDERED: SENNA 8.6 MG TAB PO ONE (09:00)
--- NOTE | 2016-09-25 09:37 | CARDIOLOGY PROGRESS NOTE ---
DATE: 09/25/2016 HISTORY OF PRESENT ILLNESS: Mr. Farooq is a 66-year-old white male who was admitted with bilateral community acquired pneumonia which manifested as fever, chills, progressive dyspnea, cough, hypoxia and respiratory alkalosis who was noted to be in atrial fibrillation on admission. The patient spontaneously converted back to a normal sinus rhythm on 09/24/2016 at 0540. He has maintained a normal sinus rhythm to sinus tachycardia since then. The patient's symptoms have improved over the past 24 hours. He is less short of breath, although still gets somewhat dyspneic with activity, and even with talking too much. He denies any chest pain, heaviness, tightness, or pressure. No neck, jaw, back or arm pain. He denies any palpitations, tachypalpitations, syncope, or near syncope. PHYSICAL EXAMINATION: VITAL SIGNS: Temperature is 36.7 degrees Celsius, pulse is 92 and regular, respiratory rate 18 and somewhat labored. Blood pressure is 133/82. SPO2 is 91% on 4 liters oxygen via nasal cannula. GENERAL: The patient is in no acute distress. HEENT: Head is atraumatic, normocephalic. EOMs intact. Sclerae are anicteric. Facies symmetric. No perioral cyanosis. NECK: Without thyromegaly, adenopathy or JVD. CHEST AND LUNGS: With scattered crackles bilaterally. Improved air movement. CARDIOVASCULAR: S1 and S2 are regular at a rate of 95 beats per minute. No obvious murmur, gallop or rub. PMI is nondisplaced. No lifts, heaves, or thrills. No abdominal, aortic or renal bruits. ABDOMEN: Bowel sounds present. EXTREMITIES: Without clubbing, cyanosis or edema. NEUROLOGIC: The patient is awake, alert and oriented. Pleasant and cooperative. Answers questions appropriately. Speech is clear. Normal movement in all 4 extremities. Gait pattern not assessed. LABORATORIES: White blood cell count is 14.48. Hemoglobin is 10.8 g/dL, hematocrit 31.6%. Platelet count is 346,000. Sodium is 133 mmol/L, potassium 3.4 mmol/L, BUN is 12 with creatinine 0.93 mg/dL. ASSESSMENT: 1. Bilateral community acquired pneumonia, appears to be improving. 2. New onset paroxysmal atrial fibrillation status post spontaneous conversion back to a normal sinus rhythm. This was likely precipitated by his acute illness, hyperadrenergic state. No recurrences. 3. Hypertension. 4. Hypercholesterolemia. 5. CHADS-VASc score is 2 based on age and hypertension. 6. No signs or symptoms of stroke or mini stroke. 7. No angina pectoris or anginal equivalent symptoms. 8. No signs or symptoms of congestive heart failure. PLAN: 1. The patient likely developed atrial fibrillation secondary to the physiological stress of his current illness. He has not had any recurrent atrial fibrillation since spontaneously converting yesterday morning. 2. When respiratory status allows, consider adding low dose beta kelvin such as Toprol-XL 25-50 mg daily. 3. Continue Lovenox at current dose until discharge. 4. Recommend Eliquis 5 mg b.i.d. upon discharge. He will most likely be on this for a total of 1 month, and if no recurrent atrial fibrillation or atrial dysrhythmias, we will likely discontinue Eliquis at that time. 5. Continue antibiotics as specified by Infectious Disease. 6. I will plan on seeing the patient in approximately 1 month in the office. Our office will contact him with an appointment. We will sign off the case for now, unless cardiac issues arise. Patient seen and examined by me in conjunction with Mr. Devlin. No further atrial fibrillation. He is feeling better today than yesterday. However, still with dyspnea. Still with sinus tachycardia. Lungs improved but still with decreased air movement. Cardiac status stable. No new recommendations. Continue short term anticoagulation. Thank you, Maranda Avelar MD [facility]
--- NOTE | 2016-09-25 09:41 | PULMONARY PROGRESS NOTE ---
DATE: 09/25/2016 The patient considerably improved today. He has walked to the bathroom and somewhat in the hallway without any significant tachypnea. He denies any chest pain or significant sputum production. His GI tract has been stable. He has no nausea, no aspiration. PHYSICAL EXAMINATION: VITAL SIGNS: Stable and he is afebrile. Blood pressure 133/82, pulse is 90 and regular, oxygen saturation 93% on 4 liters. He has not had any bowel movements. Weight is 85 kilograms. According to nurses' notes, he did fairly well last night. He is able to walk into the bathroom, brush his teeth without any difficulty this morning. HEENT: Unremarkable. No adenopathy is noted. HEART: Regular rate and rhythm, 90 beats per minute. No murmurs are heard. LUNGS: Reveal few coarse breath sounds at the right base, otherwise are clear. ABDOMEN: Distended and tympanitic. Bowel sounds are increased. No tenderness is noted. There is no guarding. EXTREMITIES: Reveal no cyanosis, clubbing or edema. LABORATORY DATA: White count is down to 14.48 from 19.05, hemoglobin and hematocrit are 10.8 and 32%, platelet count 346,000, with a increase in neutrophils. His sed rate is greater than 90. PRP looked good. Urinalysis did reveal 5-10 red cells, 5-10 white cells, some granular casts, 3+ blood. Sputum Gram stain from yesterday revealed moderate number of inflammatory cells with some epithelial cells, probable contaminant. Blood cultures so far are unremarkable from 09/23/2016. IMPRESSION: 1. Bilateral pneumonia. 2. Hematuria, improved. 3. Ileus. RECOMMENDATIONS: 1. Continue the Levaquin. 2. Continue with good IV hydration. 3. Increase activity. 4. Recheck urinalysis again in about 2 weeks. If the hematuria persists, a urology evaluation may be needed. I do not find anything to suggest a vasculitis at this point and the elevated sed rate may be related to his pneumonia. Overall, he is quite stable and improved.
--- NOTE | 2016-09-25 11:30 | ECHOCARDIOGRAM REPORT ---
*NOTICE TO RECEIVING [employer] This information is strictly Confidential and protected under [place] law. [place] law prohibits you from making any further disclosure of this information unless further disclosure is expressly permitted by the written consent of the person to whom it pertains or is authorized by law. A general authorization for the release of medical or other information is not sufficient for this purpose. Hospital accepts no responsibility if the information is made available to any other person, INCLUDING THE PATIENT. Interpretation Summary * Name: VIRGIL ALLEN Study Date: 09/25/2016 08:36 AM BP: 136/81 mmHg * Patient Location: [facility]\S\N288\S\1 HR: 83 * : 1950 (M/d/yyyy) Gender: Male Height: 70 in * Age: 66 yrs Ethnicity: [place] Weight: 184 lb * Ordering Physician: Mariela Vasquez * Performed By: Amber Trinh * * Reason For Study: A-FIB * BSA: 2.0 m2 * -- Conclusions -- * Left ventricular systolic function is normal. * No regional wall motion abnormalities noted. * Ejection Fraction = 60-65%. * There is borderline concentric left ventricular hypertrophy. * Grade I diastolic dysfunction, (abnormal relaxation pattern). * No significant valvular pahtology. Procedure Details * A complete two-dimensional transthoracic echocardiogram was performed (2D, M-mode, Doppler and color flow Doppler). Left Ventricle * The left ventricle is normal in size. * There is borderline concentric left ventricular hypertrophy. * Ejection Fraction = 60-65%. * Left ventricular systolic function is normal. * No regional wall motion abnormalities noted. Right Ventricle * The right ventricle is normal size. * The right ventricular systolic function is normal as assessed by tricuspid annular plane systolic excursion (TAPSE) (normal >1.5 cm). Mitral Valve * The mitral valve is grossly normal. * There is no mitral valve stenosis. * There is trace mitral regurgitation. Tricuspid Valve * The tricuspid valve is not well visualized, but is grossly normal. * There is no tricuspid stenosis. * Significant tricuspid regurgitation is absent. Aortic Valve * The aortic valve is tricuspid. The leaflet thickness if normal. There is no aortic stenosis, and no significant insufficiency. * The aortic valve opens well. * Aortic valve sclerosis mild, without significant aortic valvular stenosis. * There is no significant aortic regurgitation. Pulmonic Valve * The pulmonic valve is not well visualized. Great Vessels * Borderline aortic root dilatation. * The pulmonary is not well visualized. Pericardium/Pleural * There is no pericardial effusion. Great Vessels * Normal inferior vena cava size and collapsability with sniff indicates a normal right atrial pressure of 3 mmHg Left Ventricular Diastolic Function * Grade I diastolic dysfunction, (abnormal relaxation pattern). MMode 2D Measurements and Calculations IVSd 1.3 cm IVSs 1.9 cm LVIDd 4.4 cm LVIDs 2.9 cm LVPWd 1.1 cm LVPWs 2.1 cm IVS/LVPW 1.1 FS 34.3 % EDV(Teich) 88.0 ml ESV(Teich) 32.0 ml EF(Teich) 63.6 % EDV(cubed) 85.6 ml ESV(cubed) 24.2 ml EF(cubed) 71.7 % % IVS thick 51.0 % % LVPW thick 95.2 % LV mass(C)d 186.2 grams LV mass(C)dI 92.4 grams/m\S\2 LV mass(C)s 257.2 grams LV mass(C)sI 127.7 grams/m\S\2 SV(Teich) 56.0 ml SI(Teich) 27.8 ml/m\S\2 SV(cubed) 61.3 ml SI(cubed) 30.4 ml/m\S\2 ACS 1.3 cm LA dimension 3.8 cm asc Aorta Diam 3.3 cm LVOT diam 1.9 cm LVOT area 2.9 cm\S\2 LVAd ap4 29.2 cm\S\2 LVLd ap4 7.8 cm EDV(MOD-sp4) 88.3 ml EDV(sp4-el) 92.8 ml LVAs ap4 15.1 cm\S\2 LVLs ap4 5.8 cm ESV(MOD-sp4) 31.9 ml ESV(sp4-el) 33.7 ml EF(MOD-sp4) 63.8 % EF(sp4-el) 63.7 % LVAd ap2 27.7 cm\S\2 LVLd ap2 6.9 cm EDV(MOD-sp2) 91.8 ml EDV(sp2-el) 94.0 ml LVAs ap2 15.0 cm\S\2 LVLs ap2 5.6 cm ESV(MOD-sp2) 33.8 ml ESV(sp2-el) 34.1 ml EF(MOD-sp2) 63.2 % EF(sp2-el) 63.7 % LVLd %diff -12.40 % EDV(MOD-bp) 94.8 ml LVLs %diff -3.32 % ESV(MOD-bp) 32.1 ml EF(MOD-bp) 66.2 % SV(MOD-sp4) 56.4 ml SI(MOD-sp4) 28.0 ml/m\S\2 SV(MOD-sp2) 58.0 ml SI(MOD-sp2) 28.8 ml/m\S\2 SV(MOD-bp) 62.7 ml SI(MOD-bp) 31.1 ml/m\S\2 SV(sp4-el) 59.1 ml SI(sp4-el) 29.3 ml/m\S\2 SV(sp2-el) 59.9 ml SI(sp2-el) 29.7 ml/m\S\2 Doppler Measurements and Calculations MV E max oral 78.2 cm/sec MV A max oral 97.1 cm/sec MV E/A 0.81 MV dec time 0.20 sec Ao V2 max 166.9 cm/sec Ao max PG 11.1 mmHg Ao max PG (full) 4.1 mmHg EDWINA(V,A) 2.3 cm\S\2 EDWINA(V,D) 2.3 cm\S\2 LV V1 max PG 7.0 mmHg LV V1 mean PG 3.2 mmHg LV V1 max 132.7 cm/sec LV V1 mean 80.2 cm/sec LV V1 VTI 24.5 cm MR max oral 453.1 cm/sec MR max PG 82.2 mmHg SV(LVOT) 71.8 ml SI(LVOT) 35.7 ml/m\S\2 PA V2 max 107.8 cm/sec PA max PG 4.7 mmHg TR max oral 299.7 cm/sec
--- NOTE | 2016-09-25 12:18 | Medical Student: [facility] ---
Med Student Progress Note Date of Service Sep 25, 2016. Subjective Pt evaluation today including: conversation w/ patient 66y/o male in hospital admission day two, abx day two, states that he is feeling much better today. While he still has some shortness of breath, he states that it is not nearly as bad as yesterday, as he is able to sit comfortably in his hospital bed. He has been using 2L O2 via NC, but was not using O2 at the time of this interview. The patient states that he still has decreased appetite at the moment. He has been able to move his bowels and states that he does not feel as constipated as yesterday. However, the constipation is still present. The patient currently denies fevers, chills, sweats, palpitations, and chest pain. Review of Systems Constitutional: No chills, No fever, No sweats, No weakness Eyes: No discharge, No redness Respiratory: + see HPI Cardiac: No edema, No palpitations Abdomen: + constipation, No diarrhea, No nausea, No pain, No vomiting Neurologic: No memory loss, No paralysis Psychiatric: No anhedonism, No depression symptoms Skin: No itch, No new/changing skin lesions, No rash Objective Vital Signs Date Time Temp Pulse Resp B/P Pulse Ox O2 Delivery O2 Flow Rate FiO2 09/25/16 11:16 37.4 97 20 127/66 90 09/25/16 08:00 93 Nasal Cannula 09/25/16 07:49 95 18 91 Nasal Cannula 4.0 09/25/16 07:21 36.7 86 20 133/82 90 09/25/16 04:55 36.8 83 22 136/81 93 Nasal Cannula 4.0 09/25/16 04:00 Nasal Cannula 4.0 09/25/16 01:56 99 20 92 Nasal Cannula 4.0 09/25/16 00:01 Nasal Cannula 4.0 09/24/16 23:43 36.8 96 22 146/84 92 Nasal Cannula 4.0 09/24/16 20:17 36.6 91 20 123/65 97 Nasal Cannula 4.0 09/24/16 20:00 93 Nasal Cannula 4.0 09/24/16 18:17 91 18 92 Nasal Cannula 4.0 09/24/16 17:53 37.5 09/24/16 16:16 38.2 79 20 147/74 93 Nasal Cannula 4.0 09/24/16 16:00 93 Nasal Cannula 4.0 09/24/16 14:02 103 18 93 Nasal Cannula 4.0 09/24/16 12:19 Nasal Cannula 4.0 Physical Exam General Appearance: WD/WN, no apparent distress Eyes: bilateral eyes EOMI, bilateral eyes normal inspection ENT: normal ENT inspection Respiratory/Chest: chest non-tender, lungs clear, no respiratory distress, + pertinent finding (patient taking shallow, quick breaths) Cardiovascular: regular rate, rhythm, no edema, no gallop, no murmur Abdomen: normal bowel sounds, non tender, + pertinent finding (distended) Extremities: non-tender, normal inspection, no pedal edema Neurologic/Psychiatric: alert, normal mood/affect, oriented x 3 Skin: normal color, warm/dry, no rash Laboratory Results Last 24 Hours Test 09/24/16 14:35 09/25/16 05:40 Erythrocyte Sedimentation Rate > 90 mm/hr White Blood Count 14.48 K/uL Red Blood Count 3.88 M/uL Hemoglobin 10.8 g/dL Hematocrit 31.6 % Mean Corpuscular Volume 81.4 fL Mean Corpuscular Hemoglobin 27.8 pg Mean Corpuscular Hemoglobin Concent 34.2 g/dl Platelet Count 346 K/uL Mean Platelet Volume 10.1 fL Neutrophils (%) (Auto) 88.1 % Lymphocytes (%) (Auto) 9.3 % Monocytes (%) (Auto) 2.1 % Eosinophils (%) (Auto) 0.1 % Basophils (%) (Auto) 0.1 % Neutrophils # (Auto) 12.75 K/uL Lymphocytes # (Auto) 1.35 K/uL Monocytes # (Auto) 0.30 K/uL Eosinophils # (Auto) 0.02 K/uL Basophils # (Auto) 0.01 K/uL RDW Standard Deviation 43.7 fL RDW Coefficient of Variation 14.6 % Immature Granulocyte % (Auto) 0.3 % Immature Granulocyte # (Auto) 0.05 K/uL Sodium Level 133 mmol/L Potassium Level 3.4 mmol/L Chloride Level 99 mmol/L Carbon Dioxide Level 23 mmol/L Anion Gap 11.0 mmol/L Blood Urea Nitrogen 12 mg/dl Creatinine 0.93 mg/dl Est Creatinine Clear Calc Drug Dose 78.5 ml/min Estimated GFR () 97.4 Estimated GFR (Non- 84.1 BUN/Creatinine Ratio 12.7 Random Glucose 94 mg/dl Calcium Level 7.8 mg/dl Total Bilirubin 0.4 mg/dl Aspartate Amino Transf (AST/SGOT) 37 U/L Alanine Aminotransferase (ALT/SGPT) 25 U/L Alkaline Phosphatase 114 U/L Total Protein 6.3 gm/dl Albumin 1.9 gm/dl Globulin 4.4 gm/dl Albumin/Globulin Ratio 0.4 Medications 1. Vancomycin 1250 mg IV q. 14 hours. 2. Levofloxacin 750 mg IV q. 24 hours. 3. Tamiflu 75 mg b.i.d. 4. Xopenex 1.25 mg nebulized q. 6 hours. 5. Amlodipine 10 mg daily. 6. Aspirin 81 mg a day. 7. Fish oil capsules 2 grams daily. 8 . Losartan 25 mg daily. 9. Lovenox 40 mg subcutaneous injection q. 24 hours. 10. Zosyn 3.375 grams IV q. 8 hours. 11. D5 half normal saline with potassium chloride at 100 mL/hour. 12. Tylenol p.r.n. 13. Maalox Max p.r.n. 14. Milk of magnesia p.r.n. 15. Ambien 5 mg at bedtime p.r.n. for sleep. 16. Zofran 4 mg IV q. 6 hours p.r.n. 17. MiraLax powder 17 grams daily as needed for constipation. Assessment and Plan Assessment and Plan: 66y/o male diagnosed with Bilateral Pneumonia on day two of Levaquin, Vancomycin , and Zosyn. Patient's shortness of breath and overall status are improving, and his WBC continues to trend down. Bilateral Pneumonia/Shortness of breath- Continue with the administration of IV Vancomycin, Levofloxacin, and Zosyn. Continue to administer O2 via nasal canula as needed for symptoms. Continue to administer Tamiflu. Levalbuterol 1.25mg Q6Hr INH for symptom control. Legionella antigen and Mycoplasma Pneumoniae IgG and IgM pending. Pulmonology will continue to follow. Initial blood cultures currently negative, will wait for other cultures to return. Sputum culture pending. Atrial Fibrillation- Patient is currently in normal sinus rhythm. Cardiology was consulted and has seen the patient. Currently, the patient is being administered Enoxaparin 120mg Q24H SC. Upon discharge, the patient will be started on Eliquis 5mg BID for 1 month and will also follow up with agent licensing clerk , Dr. Devlin, as an outpatient. Ileus- Constipation has improved. Stool softeners and laxatives as needed for symptoms. Hypertension- Administer Losartan Potassium 25mg PO daily and Amlodipine Besylate 10mg PO daily. Continue to administer home medications of ASA 81mg and Fish Oil as well. Continued [facility] stay due to: multiple IV medications needed
--- NOTE | 2016-09-25 15:29 | Progress Note ---
Subjective Date of Service: Sep 25, 2016. Subjective pt ambulating in room, no events. remains on multiple abx. sputum with nml gisela so far, blood cultures from admission ngtd. tmax 38.2 yesterday at 4 pm, but now afebrile. wbc improving to 14.4 today. sed rate elevated. Problem List Medical Problems: (1) Bilateral pneumonia Status: Acute (2) New onset atrial fibrillation Status: Acute (3) Pneumonia Status: Acute Objective Vital Signs Date Time Temp Pulse Resp B/P Pulse Ox O2 Delivery O2 Flow Rate FiO2 09/25/16 14:47 37.1 105 20 135/63 92 09/25/16 14:31 103 18 88 Nasal Cannula 4.0 09/25/16 12:00 93 Nasal Cannula 09/25/16 11:16 37.4 97 20 127/66 90 09/25/16 08:00 93 Nasal Cannula 09/25/16 07:49 95 18 91 Nasal Cannula 4.0 09/25/16 07:21 36.7 86 20 133/82 90 09/25/16 04:55 36.8 83 22 136/81 93 Nasal Cannula 4.0 09/25/16 04:00 Nasal Cannula 4.0 09/25/16 01:56 99 20 92 Nasal Cannula 4.0 09/25/16 00:01 Nasal Cannula 4.0 09/24/16 23:43 36.8 96 22 146/84 92 Nasal Cannula 4.0 09/24/16 20:17 36.6 91 20 123/65 97 Nasal Cannula 4.0 09/24/16 20:00 93 Nasal Cannula 4.0 09/24/16 18:17 91 18 92 Nasal Cannula 4.0 09/24/16 17:53 37.5 09/24/16 16:16 38.2 79 20 147/74 93 Nasal Cannula 4.0 09/24/16 16:00 93 Nasal Cannula 4.0 Laboratory Results Item Value Date Time Gram Stain - Final Resulted 09/24/16 0900 Sputum Expectorated Sputum Blood Culture - Preliminary Resulted 09/23/162157 Blood NO GROWTH TO DATE. Blood Culture - Preliminary Resulted 09/23/162149 Blood NO GROWTH TO DATE. Gram Stain - Final Resulted 09/24/16 0900 Sputum Expectorated Sputum Last 24 Hours Test 09/25/16 05:40 White Blood Count 14.48 K/uL Red Blood Count 3.88 M/uL Hemoglobin 10.8 g/dL Hematocrit 31.6 % Mean Corpuscular Volume 81.4 fL Mean Corpuscular Hemoglobin 27.8 pg Mean Corpuscular Hemoglobin Concent 34.2 g/dl Platelet Count 346 K/uL Mean Platelet Volume 10.1 fL Neutrophils (%) (Auto) 88.1 % Lymphocytes (%) (Auto) 9.3 % Monocytes (%) (Auto) 2.1 % Eosinophils (%) (Auto) 0.1 % Basophils (%) (Auto) 0.1 % Neutrophils # (Auto) 12.75 K/uL Lymphocytes # (Auto) 1.35 K/uL Monocytes # (Auto) 0.30 K/uL Eosinophils # (Auto) 0.02 K/uL Basophils # (Auto) 0.01 K/uL RDW Standard Deviation 43.7 fL RDW Coefficient of Variation 14.6 % Immature Granulocyte % (Auto) 0.3 % Immature Granulocyte # (Auto) 0.05 K/uL Sodium Level 133 mmol/L Potassium Level 3.4 mmol/L Chloride Level 99 mmol/L Carbon Dioxide Level 23 mmol/L Anion Gap 11.0 mmol/L Blood Urea Nitrogen 12 mg/dl Creatinine 0.93 mg/dl Est Creatinine Clear Calc Drug Dose 78.5 ml/min Estimated GFR () 97.4 Estimated GFR (Non- 84.1 BUN/Creatinine Ratio 12.7 Random Glucose 94 mg/dl Calcium Level 7.8 mg/dl Total Bilirubin 0.4 mg/dl Aspartate Amino Transf (AST/SGOT) 37 U/L Alanine Aminotransferase (ALT/SGPT) 25 U/L Alkaline Phosphatase 114 U/L Total Protein 6.3 gm/dl Albumin 1.9 gm/dl Globulin 4.4 gm/dl Albumin/Globulin Ratio 0.4 Assessment and Plan (1) Bilateral pneumonia Status: Acute Assessment & Plan: continue abx for now, follow cultures, if remain negative and pt continues to improve, will likely narrow tomorrow. (2) Leukocytosis Assessment & Plan: improving (3) Fever Assessment & Plan: resolved Continued [facility] stay due to: multiple IV medications needed
[2016-09-25] MEDS ORDERED: SOD PHOSPHATE/SOD BIPHOSPHATE ENEMA 132 ML BTL PR ONE (16:00)
[2016-09-25] MEDS: LEVOFLOXACIN / D5W 750 MG in PREMIXED IN D5W 150 ML IV SCH (20:15)
[2016-09-25] MEDS: ZOLPIDEM TARTRATE 5 MG TAB PO PRN (20:15)
[2016-09-25 23:39] LABS: INFLUENZA A PCR Neg for Influ A (NEG); INFLUENZA B PCR Neg for Influ B (NEG)
[2016-09-26] VITALS (13 sets, daily range): BP systolic 128–145; BP diastolic 75–85; PULSE 78–96; TEMP 36.6–38.1; O2SAT 83–96
[2016-09-26] MEDS: LEVALBUTEROL 1.25MG/0.5ML NEB INH SCH ×5 (01:51→21:05)
[2016-09-26 06:21] LABS: BASO % 0.2 %; BASO ABS # 0.02 K/uL (0-0.2); COMPLETE YES; EOS % 0.7 %; HEMATOCRIT 30.8 % (42-52); IG% 0.4 %; LYMPH % 10.3 %; LYMPH ABS # 1.15 K/uL (1.2-3.4); MEAN CELL VOLUME 81.1 fL (80-100); MEAN CORPUSCULAR HEMOGLOBIN 28.2 pg (25-34); MEAN CORPUSCULAR HGB CONC 34.7 g/dl (32-36); MEAN PLATELET VOLUME 9.9 fL (7.4-10.4); MONO % 3.5 %; NEUT % 84.9 %; PLATELET COUNT 397 K/uL (130-400); WHITE BLOOD COUNT 11.13 K/uL (4.8-10.8)
[2016-09-26 06:45] LABS: BUN/CREATININE RATIO 12.4 (10-20); CALCIUM 8.2 mg/dl (8.5-10.1); CREATININE 0.96 mg/dl (0.60-1.40); POTASSIUM 3.4 mmol/L (3.5-5.1)
[2016-09-26 06:48] LABS: ALB/GLOB RATIO 0.4 (0.9-2)
--- NOTE | 2016-09-26 07:18 | PULMONARY PROGRESS NOTE ---
DATE: 09/26/2016 The patient is considerably improved today. He has been out ambulating in the hallway without difficulty. His cough is considerably improved. He denies shortness of breath or chest pain. He did have mild oxygen desaturation with walking on room air down to 86%; on 2 liters he is 93%. His cough has improved. PHYSICAL EXAMINATION: VITAL SIGNS: Stable. Blood pressure 133/77 and he is afebrile. HEENT: Unremarkable. HEART: Regular rate and rhythm. No murmurs are heard. LUNGS: Clear. No crackles or rales or wheezing noted today. There is no fremitus. ABDOMEN: Soft, nontender. EXTREMITIES: He has no cyanosis, clubbing or edema. LABORATORY DATA: White count is down to 11.1, hemoglobin 10.7, platelet count 397,000. PRP looked good with a potassium of 3.4. TSH was normal at 1.4. Blood cultures are negative. Sputum from the 6th revealed many epithelial cells. Repeat blood cultures on the 6th are pending. His ileus is improving as well, although I do not see any bowel movements noted in the record. IMPRESSION: 1. Respiratory insufficiency secondary to bilateral pneumonia. 2. Bilateral pneumonia. 3. Ileus. 4. Hematuria. Sed rate probably is related to his pneumonia. He has a few red blood cells and white blood cells in the urine. Has no symptoms of prostatitis. He also had +3 protein. RECOMMENDATIONS: 1. Continue on his present antimicrobial agents. He could probably be changed to just Levaquin alone and I think 500 mg a day would be appropriate. He should be treated for a full 10 days and could be placed on oral Levaquin at the time of discharge. 2. Repeat urinalysis again in about 4 weeks. If the hematuria persists, urology evaluation would be recommended. Cardiology evaluation appreciated. The patient will be sent home on [email or web address]. I talked with him about avoiding any skiing or any heavy activity while on anticoagulants and he understands. I will sign off on the patient now since pulmonary wilkes he looks good. I would be glad to see him again in about 3-4 weeks and repeat the chest x-ray at that time.
[2016-09-26] MEDS: ENOXAPARIN 120 MG/0.8 ML SYR SC SCH (08:33)
[2016-09-26] MEDS: AMLODIPINE BESYLATE 5 MG TAB PO SCH (08:33)
[2016-09-26] MEDS: LOSARTAN POTASSIUM 25 MG TAB PO SCH (08:33)
[2016-09-26] MEDS: ASPIRIN 81 MG ECTAB PO SCH (08:33)
[2016-09-26] MEDS: OSELTAMIVIR PHOSPHATE 75 MG CAP PO SCH (08:34)
[2016-09-26] MEDS: OMEGA-3 (PURIFIED FISH OIL) 1 GM CAP PO SCH (08:34)
--- NOTE | 2016-09-26 11:08 | DIAGNOSTIC IMAGING REPORT ---
KUB CLINICAL HISTORY: Follow-up ileus. FINDINGS: An AP, portable, supine abdominal radiograph is compared to study dated 09/24/16 and correlated with abdominal ultrasound dated 06/09/2015. There is mild persistent gaseous distention of the small bowel and colon, similar to the 09/24/2016 examination. There is no radiographic evidence of bowel obstruction. No evidence of intraperitoneal free air is seen on this single supine view. There are no abnormal abdominal calcifications. Cholecystectomy clips are identified in the right upper quadrant. Phleboliths are seen in the pelvis.The skeletal structures appear osteopenic. The bony structures are intact as imaged. IMPRESSION: 1. There is mild persistent gaseous distention of the small bowel and colon suggesting ileus. This is unchanged from previous. 2. There is no radiographic evidence of bowel obstruction. Electronically signed by: Freddy Velazquez M.D. 09/26/2016 11:07 AM Dictated Date/Time: 09/26/2016 11:05 AM
--- NOTE | 2016-09-26 11:12 | Progress Note ---
Subjective Date of Service: Sep 26, 2016. Subjective Pt evaluation today including: conversation w/ patient, conversation w/ family , physical exam, chart review, lab review pt feeling much better, asking to go home. states he has been ambulating in [place] without difficulty. No fevers/chills. tolerating abx. narrowed to levaquin , remains on tamiflu, repeat flu negative. blood and sputum cultures negative. at bedside. Eating better, no n/v/d. still with cough, but improved, denies hemoptysis. wbc continues to improve. All remaining ros reviewed and are negative. Problem List Medical Problems: (1) Bilateral pneumonia Status: Acute (2) New onset atrial fibrillation Status: Acute (3) Pneumonia Status: Acute Objective Vital Signs Date Time Temp Pulse Resp B/P Pulse Ox O2 Delivery O2 Flow Rate FiO2 09/26/16 08:00 Nasal Cannula 2.0 09/26/16 07:45 37.3 87 16 140/85 96 Room Air 09/26/16 07:35 96 20 88 Room Air 09/26/16 04:45 36.6 90 18 133/77 93 Nasal Cannula 2.0 09/26/16 04:00 93 Nasal Cannula 2.0 09/26/16 01:51 88 24 86 Room Air 09/26/16 00:12 37.2 93 18 130/76 92 Nasal Cannula 2.0 09/26/16 00:00 93 Nasal Cannula 2.0 09/25/16 20:08 37.2 99 22 133/77 90 Nasal Cannula 2.0 09/25/16 20:00 88 24 93 Nasal Cannula 2.0 09/25/16 20:00 93 Nasal Cannula 2.0 09/25/16 16:00 104 09/25/16 16:00 93 Nasal Cannula 09/25/16 14:47 37.1 105 20 135/63 92 09/25/16 14:31 103 18 88 Nasal Cannula 4.0 09/25/16 12:00 93 Nasal Cannula 09/25/16 11:16 37.4 97 20 127/66 90 Physical Exam General Appearance: WD/WN, no apparent distress, + pertinent finding (much improved) Eyes: EOMI Neck: supple Respiratory/Chest: lungs clear, normal breath sounds, no respiratory distress, + pertinent finding (somewhat decreased at bases but no wheezing) Cardiovascular: no edema Abdomen: soft Extremities: non-tender, normal inspection, no pedal edema Neurologic/Psychiatric: alert, oriented x 3 Skin: normal color Laboratory Results Item Value Date Time Blood Culture - Preliminary Resulted 09/24/16 1133 Blood NO GROWTH TO DATE. Blood Culture - Preliminary Resulted 09/24/16 1120 Blood NO GROWTH TO DATE. Gram Stain - Final Complete 09/24/16 0900 Sputum Expectorated Sputum Blood Culture - Preliminary Resulted 09/23/16 2158 Blood NO GROWTH TO DATE. Blood Culture - Preliminary Resulted 09/23/16 2150 Blood NO GROWTH TO DATE. Last 24 Hours Test 09/25/16 21:45 09/26/16 05:13 Influenza Type A (RT-PCR) Neg for Influ A Influenza Type B (RT-PCR) Neg for Influ B White Blood Count 11.13 K/uL Red Blood Count 3.80 M/uL Hemoglobin 10.7 g/dL Hematocrit 30.8 % Mean Corpuscular Volume 81.1 fL Mean Corpuscular Hemoglobin 28.2 pg Mean Corpuscular Hemoglobin Concent 34.7 g/dl Platelet Count 397 K/uL Mean Platelet Volume 9.9 fL Neutrophils (%) (Auto) 84.9 % Lymphocytes (%) (Auto) 10.3 % Monocytes (%) (Auto) 3.5 % Eosinophils (%) (Auto) 0.7 % Basophils (%) (Auto) 0.2 % Neutrophils # (Auto) 9.44 K/uL Lymphocytes # (Auto) 1.15 K/uL Monocytes # (Auto) 0.39 K/uL Eosinophils # (Auto) 0.08 K/uL Basophils # (Auto) 0.02 K/uL RDW Standard Deviation 43.1 fL RDW Coefficient of Variation 14.6 % Immature Granulocyte % (Auto) 0.4 % Immature Granulocyte # (Auto) 0.05 K/uL Sodium Level 134 mmol/L Potassium Level 3.4 mmol/L Chloride Level 98 mmol/L Carbon Dioxide Level 26 mmol/L Anion Gap 10.0 mmol/L Blood Urea Nitrogen 12 mg/dl Creatinine 0.96 mg/dl Est Creatinine Clear Calc Drug Dose 76.0 ml/min Estimated GFR () 93.8 Estimated GFR (Non- 80.9 BUN/Creatinine Ratio 12.4 Random Glucose 92 mg/dl Calcium Level 8.2 mg/dl Total Bilirubin 0.4 mg/dl Aspartate Amino Transf (AST/SGOT) 67 U/L Alanine Aminotransferase (ALT/SGPT) 41 U/L Alkaline Phosphatase 108 U/L Total Protein 6.4 gm/dl Albumin 1.9 gm/dl Globulin 4.5 gm/dl Albumin/Globulin Ratio 0.4 Assessment and Plan (1) Bilateral pneumonia Status: Acute Assessment & Plan: will stop tamiflu, eating can change levaquin to po, day #3 , on 750mg can continue this dose and complete 5 day course. ok for d/c from ID standpoint when medically stable. (2) Leukocytosis (3) Fever Continued [facility] stay due to: multiple IV medications needed
--- NOTE | 2016-09-26 12:28 | Medical Student: [facility] ---
Med Student Progress Note Date of Service Sep 26, 2016. Subjective Pt evaluation today including: conversation w/ patient 66y/o male hospital admission day three and hospital antibiotic day three states that he feels better today. He has been able to get out of bed and walk around the halls with some shortness of breath. However, at rest, he has very little shortness of breath. Otherwise, the patient continues to feel constipated despite getting an enema last night and multiple other medications for softening the stool. He denies abdominal pain, nausea, vomiting, chest pain , palpitations, fever, and chills. Review of Systems Constitutional: No chills, No fever, No sweats Eyes: No discharge, No redness, No worsening of vision ENT: No hearing loss, No nasal symptoms Respiratory: + see HPI Cardiac: No chest pain, No edema, No palpitations Abdomen: + constipation, No diarrhea, No nausea, No pain, No vomiting Musculoskeletal: No muscle pain, No swelling Neurologic: No memory loss, No numbness/tingling, No paralysis, No weakness Psychiatric: No anxiety, No depression symptoms Skin: No itch, No new/changing skin lesions, No rash Objective Vital Signs Date Time Temp Pulse Resp B/P Pulse Ox O2 Delivery O2 Flow Rate FiO2 09/26/16 11:33 37.5 96 20 135/78 91 09/26/16 08:00 Nasal Cannula 2.0 09/26/16 07:45 37.3 87 16 140/85 96 Room Air 09/26/16 07:35 96 20 88 Room Air 09/26/16 04:45 36.6 90 18 133/77 93 Nasal Cannula 2.0 09/26/16 04:00 93 Nasal Cannula 2.0 09/26/16 01:51 88 24 86 Room Air 09/26/16 00:12 37.2 93 18 130/76 92 Nasal Cannula 2.0 09/26/16 00:00 93 Nasal Cannula 2.0 09/25/16 20:08 37.2 99 22 133/77 90 Nasal Cannula 2.0 09/25/16 20:00 88 24 93 Nasal Cannula 2.0 09/25/16 20:00 93 Nasal Cannula 2.0 09/25/16 16:00 104 09/25/16 16:00 93 Nasal Cannula 09/25/16 14:47 37.1 105 20 135/63 92 09/25/16 14:31 103 18 88 Nasal Cannula 4.0 Physical Exam General Appearance: WD/WN, no apparent distress Eyes: bilateral eyes EOMI, bilateral eyes normal inspection ENT: hearing grossly normal Respiratory/Chest: no respiratory distress, no accessory muscle use, + crackles (bilateral at the bases) Cardiovascular: regular rate, rhythm, no edema, no gallop, no murmur Abdomen: normal bowel sounds, non tender, + pertinent finding (distended abdomen) Extremities: non-tender, normal inspection, no pedal edema Neurologic/Psychiatric: alert, normal mood/affect, oriented x 3 Skin: normal color, warm/dry, no rash Laboratory Results Last 24 Hours Test 09/25/16 21:45 09/26/16 05:13 Influenza Type A (RT-PCR) Neg for Influ A Influenza Type B (RT-PCR) Neg for Influ B White Blood Count 11.13 K/uL Red Blood Count 3.80 M/uL Hemoglobin 10.7 g/dL Hematocrit 30.8 % Mean Corpuscular Volume 81.1 fL Mean Corpuscular Hemoglobin 28.2 pg Mean Corpuscular Hemoglobin Concent 34.7 g/dl Platelet Count 397 K/uL Mean Platelet Volume 9.9 fL Neutrophils (%) (Auto) 84.9 % Lymphocytes (%) (Auto) 10.3 % Monocytes (%) (Auto) 3.5 % Eosinophils (%) (Auto) 0.7 % Basophils (%) (Auto) 0.2 % Neutrophils # (Auto) 9.44 K/uL Lymphocytes # (Auto) 1.15 K/uL Monocytes # (Auto) 0.39 K/uL Eosinophils # (Auto) 0.08 K/uL Basophils # (Auto) 0.02 K/uL RDW Standard Deviation 43.1 fL RDW Coefficient of Variation 14.6 % Immature Granulocyte % (Auto) 0.4 % Immature Granulocyte # (Auto) 0.05 K/uL Sodium Level 134 mmol/L Potassium Level 3.4 mmol/L Chloride Level 98 mmol/L Carbon Dioxide Level 26 mmol/L Anion Gap 10.0 mmol/L Blood Urea Nitrogen 12 mg/dl Creatinine 0.96 mg/dl Est Creatinine Clear Calc Drug Dose 76.0 ml/min Estimated GFR () 93.8 Estimated GFR (Non- 80.9 BUN/Creatinine Ratio 12.4 Random Glucose 92 mg/dl Calcium Level 8.2 mg/dl Total Bilirubin 0.4 mg/dl Aspartate Amino Transf (AST/SGOT) 67 U/L Alanine Aminotransferase (ALT/SGPT) 41 U/L Alkaline Phosphatase 108 U/L Total Protein 6.4 gm/dl Albumin 1.9 gm/dl Globulin 4.5 gm/dl Albumin/Globulin Ratio 0.4 Medications Current Inpatient Medications Medications (Trade) Dose Ordered Sig/Umu Route Start Time Stop Time Status Last Admin Dose Admin Amlodipine Besylate (Norvasc Tab) 10 mg DAILY PO 09/24/16 09:00 10/24/16 08:59 09/26/16 08:33 10 MG Aspirin (Ecotrin Tab) 81 mg DAILY PO 09/24/16 09:00 10/24/16 08:59 09/26/16 08:33 81 MG Fish Oil ([employer]-3 (Purified Fish Oil) Cap) 2 gm DAILY PO 09/24/16 09:00 10/24/16 08:59 09/26/16 08:34 2 GM Losartan Potassium (coZAAR TAB) 25 mg DAILY PO 09/24/16 09:00 10/24/16 08:59 09/26/16 08:33 25 MG Acetaminophen (Tylenol Tab) 650 mg Q4H PRN PO 09/23/16 23:00 10/23/16 22:59 09/24/16 15:43 650 MG Al Hydrox/Mg Hydrox/Simethicone (Maalox Max Susp) 15 ml Q4H PRN PO 09/23/16 23:00 10/23/16 22:59 Magnesium Hydroxide (Milk Of Magnesia Susp) 30 ml Q12H PRN PO 09/23/16 23:00 10/23/16 22:59 Zolpidem Tartrate (Ambien Tab) 5 mg HSZ PRN PO 09/23/16 23:00 10/23/16 22:59 09/25/16 20:15 5 MG Ondansetron HCl (Zofran Inj) 4 mg Q6H PRN IV 09/23/16 23:00 10/23/16 22:59 Polyethylene 17 gm 17 gm DAILY PRN PO 09/23/16 23:00 10/23/16 22:59 09/24/16 10:10 17 GM Levofloxacin/Prmx (Levaquin / D5W/ Premixed D5W) 150 ml @ 100 mls/hr Q24H IV 09/24/16 22:00 09/30/16 21:59 09/25/16 20:15 100 MLS/HR Levalbuterol (Xopenex 1.25MG/ 0.5ML Neb) 1.25 mg Q6R INH 09/24/16 15:00 10/24/16 14:59 09/26/16 07:35 1.25 MG Enoxaparin Sodium (Lovenox Inj) 120 mg Q24H SC 09/25/16 08:00 10/25/16 07:59 09/26/16 08:33 120 MG Assessment and Plan Assessment and Plan: 66y/o male diagnosed with Bilateral Pneumonia on day two of Levaquin. Patient's shortness of breath and overall status are improving, and his WBC continues to trend down. Bilateral PNA/Shortness of Breath- Continue with the administration of IV Levofloxacin. Consider transitioning to PO Levofloxacin. Continue to administer 02 via nasal canula as needed for symptoms. Continue to administer Tamiflu. Levalbuterol 1.25mg Q6hr INH for symptom control. Legionella antigen and Mycoplasma Pneumoniae IgG and IgM pending. Blood cultures are negative. Sputum culture showed moderate normal gisela. Upon discharge, the patient will follow up with Dr. Lawson in 3-4 weeks for a repeat CXR. Atrial Fibrillation- Patient currently in normal sinus rhythm. Cardiology was consulted and has seen the patient. Currently, the patient is being administered Enoxaparin 120mg Q24H SC. Upon discharge, the patient will be started on Xarelto for 1 month and will also follow up with veneer drier feeder, Dr. Devlin, as an outpatient. Ileus- Patient continues to have constipation. A KUB was ordered and showed ileus, but no sign of bowel obstruction. Stool softeners and laxatives as needed for symptoms. Hypertension- Administer Losartan Potassium 25mg PO daily and Amlodipine 10mg PO daily. Continue to administer home meds of ASA 81mg and Fish Oil as well. Hematuria- Repeat the UA in four weeks. If hematuria shows up at that time, patient will need further urologic workup. Continued [facility] stay due to: multiple IV medications needed
[2016-09-26] MEDS ORDERED: SENNA 8.6 MG TAB PO ONE (14:00)
--- NOTE | 2016-09-26 14:00 | Family Medicine Progress Note ---
Progress Note Date of Service Sep 26, 2016. Subjective Pt evaluation today including: conversation w/ patient [place] better today. Had a watery BM - nothing formed yet. In total has received Miralax, Lactulose, Senna x 2 tabs, and a Phosphate enema. Denied any other cough /concerns. Constitutional: No chills, No fever ENT: No hearing loss Respiratory: No cough, No sputum Abdomen: + constipation, No nausea, No pain All Other Systems: Reviewed and Negative Medications Current Inpatient Medications Medications (Trade) Dose Ordered Sig/Umu Route Start Time Stop Time Status Last Admin Dose Admin Amlodipine Besylate (Norvasc Tab) 10 mg DAILY PO 09/24/16 09:00 10/24/16 08:59 09/26/16 08:33 10 MG Aspirin (Ecotrin Tab) 81 mg DAILY PO 09/24/16 09:00 10/24/16 08:59 09/26/16 08:33 81 MG Fish Oil ([place]-3 (Purified Fish Oil) Cap) 2 gm DAILY PO 09/24/16 09:00 10/24/16 08:59 09/26/16 08:34 2 GM Losartan Potassium (coZAAR TAB) 25 mg DAILY PO 09/24/16 09:00 10/24/16 08:59 09/26/16 08:33 25 MG Acetaminophen (Tylenol Tab) 650 mg Q4H PRN PO 09/23/16 23:00 10/23/16 22:59 09/24/16 15:43 650 MG Al Hydrox/Mg Hydrox/Simethicone (Maalox Max Susp) 15 ml Q4H PRN PO 09/23/16 23:00 10/23/16 22:59 Magnesium Hydroxide (Milk Of Magnesia Susp) 30 ml Q12H PRN PO 09/23/16 23:00 10/23/16 22:59 Zolpidem Tartrate (Ambien Tab) 5 mg HSZ PRN PO 09/23/16 23:00 10/23/16 22:59 09/25/16 20:15 5 MG Ondansetron HCl (Zofran Inj) 4 mg Q6H PRN IV 09/23/16 23:00 10/23/16 22:59 Polyethylene 17 gm 17 gm DAILY PRN PO 09/23/16 23:00 10/23/16 22:59 09/24/16 10:10 17 GM Levofloxacin/Prmx (Levaquin / D5W/ Premixed D5W) 150 ml @ 100 mls/hr Q24H IV 09/24/16 22:00 09/30/16 21:59 09/25/16 20:15 100 MLS/HR Levalbuterol (Xopenex 1.25MG/ 0.5ML Neb) 1.25 mg Q6R INH 09/24/16 15:00 10/24/16 14:59 09/26/16 07:35 1.25 MG Enoxaparin Sodium (Lovenox Inj) 120 mg Q24H SC 09/25/16 08:00 10/25/16 07:59 09/26/16 08:33 120 MG Objective Vital Signs Date Time Temp Pulse Resp B/P Pulse Ox O2 Delivery O2 Flow Rate FiO2 09/26/16 11:33 37.5 96 20 135/78 91 09/26/16 08:00 Nasal Cannula 2.0 09/26/16 07:45 37.3 87 16 140/85 96 Room Air 09/26/16 07:35 96 20 88 Room Air 09/26/16 04:45 36.6 90 18 133/77 93 Nasal Cannula 2.0 09/26/16 04:00 93 Nasal Cannula 2.0 09/26/16 01:51 88 24 86 Room Air 09/26/16 00:12 37.2 93 18 130/76 92 Nasal Cannula 2.0 09/26/16 00:00 93 Nasal Cannula 2.0 09/25/16 20:08 37.2 99 22 133/77 90 Nasal Cannula 2.0 09/25/16 20:00 88 24 93 Nasal Cannula 2.0 09/25/16 20:00 93 Nasal Cannula 2.0 09/25/16 16:00 104 09/25/16 16:00 93 Nasal Cannula 09/25/16 14:47 37.1 105 20 135/63 92 09/25/16 14:31 103 18 88 Nasal Cannula 4.0 Physical Exam General Appearance: WD/WN, no apparent distress Eyes: normal inspection, PERRL ENT: hearing grossly normal Neck: supple, no JVD Respiratory/Chest: lungs clear, normal breath sounds, no respiratory distress, + crackles (fine bilateral end inspiratory crackles) Cardiovascular: regular rate, rhythm, no murmur Abdomen: normal bowel sounds, non tender, soft Extremities: non-tender, no pedal edema Neurologic/Psychiatric: alert, normal mood/affect, oriented x 3 Skin: no rash Laboratory Results Last 24 Hours Test 09/25/16 21:45 09/26/16 05:13 Influenza Type A (RT-PCR) Neg for Influ A Influenza Type B (RT-PCR) Neg for Influ B White Blood Count 11.13 K/uL Red Blood Count 3.80 M/uL Hemoglobin 10.7 g/dL Hematocrit 30.8 % Mean Corpuscular Volume 81.1 fL Mean Corpuscular Hemoglobin 28.2 pg Mean Corpuscular Hemoglobin Concent 34.7 g/dl Platelet Count 397 K/uL Mean Platelet Volume 9.9 fL Neutrophils (%) (Auto) 84.9 % Lymphocytes (%) (Auto) 10.3 % Monocytes (%) (Auto) 3.5 % Eosinophils (%) (Auto) 0.7 % Basophils (%) (Auto) 0.2 % Neutrophils # (Auto) 9.44 K/uL Lymphocytes # (Auto) 1.15 K/uL Monocytes # (Auto) 0.39 K/uL Eosinophils # (Auto) 0.08 K/uL Basophils # (Auto) 0.02 K/uL RDW Standard Deviation 43.1 fL RDW Coefficient of Variation 14.6 % Immature Granulocyte % (Auto) 0.4 % Immature Granulocyte # (Auto) 0.05 K/uL Sodium Level 134 mmol/L Potassium Level 3.4 mmol/L Chloride Level 98 mmol/L Carbon Dioxide Level 26 mmol/L Anion Gap 10.0 mmol/L Blood Urea Nitrogen 12 mg/dl Creatinine 0.96 mg/dl Est Creatinine Clear Calc Drug Dose 76.0 ml/min Estimated GFR () 93.8 Estimated GFR (Non- 80.9 BUN/Creatinine Ratio 12.4 Random Glucose 92 mg/dl Calcium Level 8.2 mg/dl Total Bilirubin 0.4 mg/dl Aspartate Amino Transf (AST/SGOT) 67 U/L Alanine Aminotransferase (ALT/SGPT) 41 U/L Alkaline Phosphatase 108 U/L Total Protein 6.4 gm/dl Albumin 1.9 gm/dl Globulin 4.5 gm/dl Albumin/Globulin Ratio 0.4 Assessment and Plan 66 yo M with shortness of breath, cough, and fatigue for 10 days, found to have bilateral pneumonia now. Was started on Augmentin as outpatient and now on day 3 of Levaquin. Remains constipated despite multiple laxatives an an enema. Acute Hypoxic Respiratory Failure secondary to pneumonia - Now on 2L Nasal cannula - Continue to wean O2 as tolerated Suspected Gram negative or Staphylococcal pneumonia treated with IV Levofloxacin , Zosyn, and Vancomycin - Will now transition to 750mg PO Levaquin daily, to complete a 5 day course - Legionella antigen and Mycoplasma pending - Will stop Tamiflu - ESR > 90 - likely from pneumonia - Pulm consult - ID Consult - Sputum culture unremarkable. - Blood cultures negative x 2 Ileus - Received Lactulose, Miralax, Senna, and Phosphate enema - Will add Mineral oil suppository and more Senna then monitor Paroxysmal atrial fibrillation, with CHADS2 = 2 - EKG on admission showed A fib with RVR - Cardiology consult - Cardiac monitoring (currently in NSR) - On Lovenox BID, will transition to Xarelto and continue for 30 days (due to cost of Eliquis) - Follow up with Kip in 30 days CODE STATUS: FULL VTE: SCDs, Lovenox DISPO: TELE Resident Tracking Resident Involvement: Resident Care Provided Care Provided: Adult Hospital Medicine Reviewed: Pt Seen/Exam by Me History breathing much improved. Constitutional: denies: fever Cardiovascular: denies chest pain General Appearance: no apparent distress Respiratory: no respiratory distress, crackles (base) Neurologic/Psychiatric: alert, oriented x 3 Skin Characteristics: warm/dry Assessment/Plan I have reviewed the medical record and performed a history and physical examination of this patient today. I have discussed the case with Dr. Vasquez. The above note reflects my findings, conclusions, and recommendations.
[2016-09-26] MEDS ORDERED: MINERAL OIL 30 ML UDC PO ONE (14:30)
[2016-09-26] MEDS ORDERED: BISACODYL 10 MG SUPP PR ONE (14:50)
[2016-09-26] MEDS ORDERED: VANCOMYCIN TROUGH SCH ×2 (17:30→23:30)
[2016-09-26] MEDS ORDERED: LEVOFLOXACIN 750 MG TAB PO ONE (18:00)
[2016-09-26] MEDS: POLYETHYLENE (MIRALAX) 17 GM PACK PO SCH (20:34)
[2016-09-26] MEDS: ACETAMINOPHEN 325 MG TAB PO PRN (22:10)
[2016-09-27] VITALS (10 sets, daily range): BP systolic 118–145; BP diastolic 66–84; PULSE 65–86; TEMP 36.5–37.2; O2SAT 92–98
[2016-09-27] MEDS: POLYETHYLENE (MIRALAX) 17 GM PACK PO SCH ×3 (00:26→08:41)
[2016-09-27] MEDS: ZOLPIDEM TARTRATE 5 MG TAB PO PRN (00:26)
[2016-09-27] MEDS: LEVALBUTEROL 1.25MG/0.5ML NEB INH SCH ×2 (01:52→07:08)
[2016-09-27 05:59] LABS: BASO % 0.3 %; BASO ABS # 0.02 K/uL (0-0.2); COMPLETE YES; EOS % 1.8 %; HEMATOCRIT 32.9 % (42-52); IG% 0.9 %; LYMPH % 13.6 %; LYMPH ABS # 1.04 K/uL (1.2-3.4); MEAN CELL VOLUME 83.1 fL (80-100); MEAN CORPUSCULAR HEMOGLOBIN 28.8 pg (25-34); MEAN CORPUSCULAR HGB CONC 34.7 g/dl (32-36); MONO % 3.8 %; NEUT % 79.6 %; PLATELET COUNT 402 K/uL (130-400); RED BLOOD COUNT 3.96 M/uL (4.7-6.1); WHITE BLOOD COUNT 7.64 K/uL (4.8-10.8)
[2016-09-27 06:33] LABS: CALCIUM 8.5 mg/dl (8.5-10.1); CREATININE 0.82 mg/dl (0.60-1.40); POTASSIUM 3.8 mmol/L (3.5-5.1)
[2016-09-27 06:36] LABS: ALB/GLOB RATIO 0.4 (0.9-2)
[2016-09-27] MEDS: LOSARTAN POTASSIUM 25 MG TAB PO SCH (08:40)
[2016-09-27] MEDS: ASPIRIN 81 MG ECTAB PO SCH (08:40)
[2016-09-27] MEDS: AMLODIPINE BESYLATE 5 MG TAB PO SCH (08:40)
[2016-09-27] MEDS: OMEGA-3 (PURIFIED FISH OIL) 1 GM CAP PO SCH (08:41)
[2016-09-27] MEDS: ENOXAPARIN 120 MG/0.8 ML SYR SC SCH (08:41)
--- NOTE | 2016-09-27 10:45 | DIAGNOSTIC IMAGING REPORT ---
CHEST 2 VIEWS ROUTINE CLINICAL HISTORY: f/u pneumonia COMPARISON STUDY: 09/24/2016 FINDINGS: Improving midlung parenchymal infiltrates bilaterally. Moderate residual. Diaphragms smooth. IMPRESSION: Improving infiltrates. Moderate residual. Continued follow-up is recommended. Electronically signed by: Jordan Schmidt M.D. 09/27/2016 10:44 AM Dictated Date/Time: 09/27/2016 10:39 AM
[2016-09-27] MEDS ORDERED: LEVOFLOXACIN 750 MG TAB PO SCH (11:00)
[2016-09-27] MEDS ORDERED: LEVO1TAB35 PO (11:08)
[2016-09-27] MEDS ORDERED: XRL10 PO (11:08)
--- NOTE | 2016-09-27 11:13 | Discharge Instructions ---
Discharge Instructions Admission Reason for Admission: Bilateral Pneumonia Discharge Discharge Diagnosis / Problem: Pneumonia Discharge Goals Goal(s): Improve disease control Activity Recommendations Activity Limitations: resume your previous activity Lifting Limitations: no more than 10 pounds Exercise/Sports Limitations: none May Resume Sexual Activity: after one week Shower/Bathe: no limitations . Instructions / Follow-Up Instructions / Follow-Up Take the antibiotic Levaquin on 09/27/16 and 09/28/16. Then you will be done. If you notice further fevers, or that cough returns, please seek medical attention. Take the new blood thinner Xarelto for 30 days, and follow up with Henry Devlin in the [facility] Cardiology clinic within a month as well. Follow up with your PCP in a week. Current Hospital Diet Patient's current hospital diet: AHA Diet (Heart Healthy) Discharge Diet Recommended Diet: Regular Diet Pending Studies Studies pending at discharge: no Medical Emergencies . Who to Call and When: Medical Emergencies: If at any time you feel your situation is an emergency, please call 911 immediately. . Non-Emergent Contact Non-Emergency issues call your: Primary Care Provider . . "Provider Documentation" section prepared by Mariela Vasquez. VTE Core Measure Inpt VTE Proph given/why not?: Enoxaparin (Lovenox)SQ
--- NOTE | 2016-09-27 11:53 | Discharge Summary ---
Discharge Summary Admission Date: Sep 23, 2016 at 23:14 Discharge Date: Sep 27, 2016 Discharge Disposition: Home Principal Diagnosis: Legionella Pneumonia Problems/Secondary Diagnoses: Atrial fibrillation - new onset, paroxysmal Procedures: ECHO 09/23/16: * -- Conclusions -- * Left ventricular systolic function is normal. * No regional wall motion abnormalities noted. * Ejection Fraction = 60-65%. * There is borderline concentric left ventricular hypertrophy. * Grade I diastolic dysfunction, (abnormal relaxation pattern). * No significant valvular pahtology. Consultations: Dr Lawson, Pulmonary Dr Fermin, ID Medication Reconciliation New Medications: Levofloxacin (Levaquin) 750 Mg Tab 750 MG PO DAILY for 2 Days, #2 TAB Rivaroxaban (Xarelto) 10 Mg Tab 20 MG PO DAILY for 30 Days, #30 Continued Medications: Albuterol Hfa (Ventolin Hfa) 200 Puffs/08917 Mcg Aers 2 PUFFS INH Q6H, #1 INTER.UNIT Amlodipine Besylate (Norvasc) 10 Mg Tab 10 MG PO DAILY, TAB Fish Oil ([place]-3) 1 Ea Cap 2400 MG PO DAILY, CAP Hydrochlorothiazide (Hctz) 25 Mg Tab 12.5 MG PO DAILY, TAB Ibuprofen (Advil) 200 Mg Tab 200-600 MG PO Q4H, TAB Losartan Potassium (Cozaar) 25 Mg Tab 25 MG PO DAILY, TAB Red Yeast Rice Extract (Red Yeast Rice) 600 Mg Tab 1 TAB PO DAILY Discontinued Medications: Amoxicillin & Pot Clavulanate (Augmentin 875-125 mg) 1 Tab Tab 875 MG PO BID for 10 Days, #20 TAB Aspirin (Aspirin Ec) 81 Mg Tab 81 MG PO DAILY Discharge Exam Physical Exam General Appearance: WD/WN, no apparent distress Eyes: normal inspection, PERRL ENT: hearing grossly normal Neck: supple, no JVD Respiratory/Chest: lungs clear, normal breath sounds, no respiratory distress, + crackles (fine bilateral end inspiratory crackles) Cardiovascular: regular rate, rhythm, no murmur Abdomen: normal bowel sounds, non tender, soft Extremities: non-tender, no pedal edema Neurologic/Psychiatric: alert, normal mood/affect, oriented x 3 Skin: no rash Review of Systems: Constitutional: No chills, No fever, No sweats, No weight loss Eyes: No diplopia, No discharge, No eye pain, No problem reported, No redness, No worsening of vision ENT: No dental problems, No hearing loss, No sore throat, No tinnitus, No trouble swallowing Respiratory: + problem reported Cardiovascular: No PND, No chest pain, No claudication, No edema, No orthopnea, No palpitations Abdomen: + constipation, No GI bleeding, No diarrhea, No nausea, No pain, No vomiting Musculoskeletal: No calf pain, No joint pain, No muscle pain, No swelling Genitourinary - Male: No dysuria, No hematuria, No urinary frequency, No urinary hesitancy, No urinary incontinence, No urinary retention, No urinary urgency Neurologic: No memory loss, No paralysis, No weakness Hospital Course Gustavo Farooq is a 66 year old male who was admitted 09/23/16, and found to have Legionella pneumonia. [place] had [place] in the [place] and had developed a URI during his trip in August. On 09/02 he went to [place], [place] and spent a week skiing. A week into his trip he developed cough, fever and some mild shortness of breath. He was then seen in the Emergency Room, September 22 and was afebrile at that time. Oxygen saturation looked good at 94-96% on room air, blood pressure was stable at 122/70. Chest x-ray revealed bilateral mid lung field pulmonary infiltrates. He was placed on Augmentin and discharged home. He got worse with fevers and then reported to the Emergency Room once again on the , and was then admitted. He had temp up to 101.4 on the day of admission. He was then placed on Zosyn and still continued to have fevers. He also had a tachycardia and had a short run of atrial fibrillation which then converted to NSR. He was changed to Levaquin and Zosyn and felt better. His cultures were essentially negative, but he continued to improve while solely on Levaquin. His labs which were send outs returned and detected the Legionella antigen in his urine. By discharge, he was walking around the hallways, weaned off oxygen, and had significantly improved. He was also found to be mildly hyponatremic during admission (133-135) (which does fit the clinical picture). For the atrial fibrillation, he was started on Xarelto due to a CHADsVASC of 2 and he should continue this for 1 month, then will have follow up with Henry Devlin to review if this should be continued. He remained on cardiac monitoring and did not have any further conversion to atrial fibrillation. He was also constipated during his admission, and developed an ileus, which was resistant to many medications. This improved by discharge. Legionella pneumonia - Weaned from 2L O2 to room air - Will complete 5 day treatment of Levaquin - Sputum culture unremarkable. - Blood cultures negative x 2 Ileus - Received Lactulose, Miralax, Senna, and Phosphate enema Paroxysmal atrial fibrillation, with CHADS2 = 2 - EKG on admission showed A fib with RVR - Cardiology consulted, recommended starting Xarelto for 30 days and will re- evaluate in clinic then - No further events on telemetry - Echo completed (as above) - Follow up with Henry in 30 days CODE STATUS: FULL VTE: SCDs, Lovenox DISPO: Discharged in good condition home on 09/27/16. Total Time Spent: Greater than 30 minutes This includes examination of the patient, discharge planning, medication reconciliation, and communication with other providers. Discharge Instructions Please refer to the electronic Patient Visit Report (Discharge Instructions) for additional information. Follow-Up With PCP within 1-2 weeks With [facility] Cardiology (Henry Devlin) in 30 days Additional Copies To Lillian Rizo M.D. Resident Tracking Resident Involvement: Resident Care Provided Care Provided: Adult Hospital Medicine
[2016-09-27 14:08] LABS: LEGIONELLA ANTIGEN DETECTED
--- NOTE | 2016-10-02 11:09 | Progress Note ---
Progress Note Called pt on 10/02/16 - he was feeling better, had gotten in touch with the [facility] to try to track down how he would have gotten Legionella. No further concerns.
== END 2016-09-27 12:14 | disposition home or self-care (01) | DRG 177 ==
LOC: ENRESERVTM → ENRESERVDT → C.EDB 21:08 → C.MED 23:14
PROVIDERS: ADMIT Internal Medicine; ATTEND Family Medicine
DX: A48.1 Legionnaires' disease (principal); J96.01 Acute respiratory failure with hypoxia; E87.3 Alkalosis; K56.7 Ileus, unspecified; E87.1 Hypo-osmolality and hyponatremia; I10 Essential (primary) hypertension; Z79.82 Long term (current) use of aspirin; I48.0 Paroxysmal atrial fibrillation; K59.00 Constipation, unspecified; R31.9 Hematuria, unspecified; E78.00 Pure hypercholesterolemia, unspecified; Z87.891 Personal history of nicotine dependence; J06.9 Acute upper respiratory infection, unspecified; J18.9 Pneumonia, unspecified organism; R19.7 Diarrhea, unspecified; Z79.899 Other long term (current) drug therapy

== ENCOUNTER → 2016-10-23 | Outpatient (CLI) | payer OTHER, MEDICARE ==
[~2016-10-23] MED LIST changes: -AMOX875T PO; -ASPI81TA28 PO; +XRL10 PO
--- NOTE | 2016-10-23 12:08 | DIAGNOSTIC IMAGING REPORT ---
TWO VIEW CHEST CLINICAL HISTORY: Follow-up pneumonia. FINDINGS: PA and lateral chest radiographs are compared to study dated 09/27/16. The cardiomediastinal silhouette is unremarkable. Streaky airspace opacities persist at the left lung base. These are most completely resolved from 09/27/2016. The right lung appears clear. No pleural effusion or pneumothorax is seen. The bony thorax appears intact. Cholecystectomy clips are noted in the right upper quadrant. IMPRESSION: There are residual streaky airspace opacities at the left lung base. This could represent atelectasis/scarring versus minimal residual consolidation. This has almost completely cleared from previous. Electronically signed by: Freddy Velazquez M.D. 10/23/2016 12:07 PM Dictated Date/Time: 10/23/2016 12:05 PM
== END | disposition home or self-care (01) ==
LOC: C.RADPV 11:03
PROVIDERS: ATTEND Family Medicine
DX: R06.02 Shortness of breath (principal); A48.1 Legionnaires' disease

== ENCOUNTER → 2016-11-22 | Outpatient (CLI) | payer OTHER, MEDICARE ==
[2016-11-22 12:53] LABS: ALT/SGPT 34 U/L (12-78); AST/SGOT 20 U/L (15-37); BLOOD UREA NITROGEN 21 mg/dl (7-18); BUN/CREATININE RATIO 22.7 (10-20); CALCIUM 8.8 mg/dl (8.5-10.1); CARBON DIOXIDE 30 mmol/L (21-32); CHLORIDE 107 mmol/L (98-107); CREATININE 0.92 mg/dl (0.60-1.40); GLUCOSE 97 mg/dl (70-99); POTASSIUM 4.2 mmol/L (3.5-5.1); SODIUM 141 mmol/L (136-145)
[2016-11-22 12:56] LABS: ALB/GLOB RATIO 0.9 (0.9-2); ALKALINE PHOSPHATASE 60 U/L (45-117); CHOLESTEROL 217 mg/dl (0-200); CHOLESTEROL/HDL RATIO 5.9; HDL CHOLESTEROL 37 mg/dl; LDL CHOLESTEROL CALCULATED 142 mg/dl; TRIGLYCERIDES 190 mg/dl (0-150); VERY LOW DENSITY LIPOPROT CALC 38 mg/dl
== END | disposition home or self-care (01) ==
LOC: C.LABPVFM 07:16
PROVIDERS: ATTEND Family Medicine
DX: I10 Essential (primary) hypertension (principal); E78.5 Hyperlipidemia, unspecified

== ENCOUNTER → 2017-05-14 | Outpatient (CLI) | payer OTHER, MEDICARE ==
[~2017-05-14] MED LIST changes: -VNTHFA/IN INH
[2017-05-14 12:50] LABS: ALT/SGPT 26 U/L (12-78); BLOOD UREA NITROGEN 21 mg/dl (7-18); BUN/CREATININE RATIO 24.5 (10-20); CALCIUM 8.7 mg/dl (8.5-10.1); CARBON DIOXIDE 25 mmol/L (21-32); CHLORIDE 107 mmol/L (98-107); CREATININE 0.84 mg/dl (0.60-1.40); GLUCOSE 91 mg/dl (70-99); SODIUM 140 mmol/L (136-145); TRIGLYCERIDES 255 mg/dl (0-150); VERY LOW DENSITY LIPOPROT CALC 51 mg/dl
[2017-05-14 12:55] LABS: ALB/GLOB RATIO 0.8 (0.9-2); ALKALINE PHOSPHATASE 64 U/L (45-117); AST/SGOT 17 U/L (15-37); CHOLESTEROL 201 mg/dl (0-200); CHOLESTEROL/HDL RATIO 5.9; HDL CHOLESTEROL 34 mg/dl; LDL CHOLESTEROL CALCULATED 116 mg/dl
== END | disposition home or self-care (01) ==
LOC: C.LABPVFM 07:38
PROVIDERS: ATTEND Family Medicine
DX: I10 Essential (primary) hypertension (principal); E78.5 Hyperlipidemia, unspecified; Z11.59 Encounter for screening for other viral diseases

== ENCOUNTER → 2017-07-25 | Outpatient (CLI) | payer OTHER, MEDICARE ==
[2017-07-25 12:30] LABS: BASO % 0.3 %; BASO ABS # 0.02 K/uL (0-0.2); COMPLETE YES; EOS % 2.4 %; HEMATOCRIT 41.5 % (42-52); IG% 0.3 %; LYMPH % 44.5 %; LYMPH ABS # 3.52 K/uL (1.2-3.4); MEAN CELL VOLUME 86.3 fL (80-100); MEAN CORPUSCULAR HEMOGLOBIN 28.9 pg (25-34); MEAN CORPUSCULAR HGB CONC 33.5 g/dl (32-36); MEAN PLATELET VOLUME 10.2 fL (7.4-10.4); MONO % 7.8 %; NEUT % 44.7 %; PLATELET COUNT 289 K/uL (130-400); RED BLOOD COUNT 4.81 M/uL (4.7-6.1); WHITE BLOOD COUNT 7.91 K/uL (4.8-10.8)
[2017-07-25 12:54] LABS: BLOOD UREA NITROGEN 23 mg/dl (7-18); BUN/CREATININE RATIO 20.9 (10-20); CALCIUM 8.7 mg/dl (8.5-10.1); CARBON DIOXIDE 28 mmol/L (21-32); CHLORIDE 102 mmol/L (98-107); CREATININE 1.09 mg/dl (0.60-1.40); GLUCOSE 89 mg/dl (70-99); POTASSIUM 3.9 mmol/L (3.5-5.1); SODIUM 135 mmol/L (136-145)
== END | disposition home or self-care (01) ==
LOC: C.LABPVFM 11:01
PROVIDERS: ATTEND Surgery
DX: K40.90 Unilateral inguinal hernia, without obstruction or gangrene, not specified as recurrent (principal)

== ENCOUNTER → 2017-07-31 | Day surgery (SDC) | payer OTHER, MEDICARE ==
[~2017-07-31] VITALS: Ht 177.8 cm; Wt 83.0 kg
[~2017-07-31] MED LIST changes: +ASPI81TA28 PO; +ATROPINE SULFATE 0.1 MG/ML 5ML SYR IV PRN; +BUPIVACAINE 0.5 % 5 MG/1 ML MPF 30ML VIAL ONE; +CEFAZOLIN SOD 1 GM VIAL ONE; +CEPH500C2 PO; +CLINDAMYCIN IV 900 MG in DEXTROSE 5% 50ML 44 ML IV SCH; +DEXAMETHASONE SOD INJ 4 MG/ML VIAL ONE; +EpHEDrine SULFATE INJ 50 MG/ML AMP IV PRN; +FENTANYL CITRATE INJ 50 MCG/1 ML 2 ML VIAL IV PRN; +FENTANYL CITRATE INJ 50 MCG/1 ML 2 ML VIAL ONE; +GLYCOPYRROLATE INJ 0.2 MG/ML VIAL ONE; +HYDR-5688 PO; +HYDROCODONE/ACETAMOPHEN 5/325MG TAB PO PRN; +HYDROmorphone INJ 1 MG/ML SYR IV PRN; +LACTATED RINGER'S 1000ML 1,000 ML IV SCH; +LIDOCAINE HCL 2% 2 ML VIAL (20MG/ML) ONE; +MIDAZOLAM HCL 1 MG/ML 2ML VIAL ONE; +NEOSTIGMINE METHYLSULFATE 5 MG/5 ML SYR ONE; +ONDANSETRON INJ 2 MG/ML 2 ML VIAL IV PRN; +ONDANSETRON INJ 2 MG/ML 2 ML VIAL ONE; +PHENYLEPHRINE HCL INJ 10 MG/ML VIAL ONE; +PROPOFOL IV EMULSION 10 MG/ML 20 ML VIAL IV ONE; +ROCURONIUM BROMIDE 10 MG/ML 5 ML VIAL IV ONE
--- NOTE | 2017-07-31 07:06 | History & Physical Bridge Note ---
H&P Re-Evaluation Bridge Note: I have examined the patient, reviewed the History & Physical and in the interval since the performance of the History & Physical I have noted the following changes of clinical significance: No changes noted
[2017-07-31 07:14] VITALS: BP 180/93; PULSE 65; TEMP 36.5; O2SAT 96; Ht 177.8 cm; Wt 83.0 kg
--- NOTE | 2017-07-31 08:50 | Discharge Instructions ---
Discharge Instructions Date of Service Jul 31, 2017. Visit Reason for Visit: Right Inguinal Hernia Discharge Discharge Diagnosis / Problem: Rt inguinal hernia Discharge Goals Goal(s): Decrease discomfort, Improve function, Improve disease control Activity Recommendations Activity Limitations: as noted below Lifting Limitations: no more than 25 pounds (for 4 weeks) Exercise/Sports Limitations: until after follow-up appointment May Resume Sexual Activity: when tolerated Shower/Bathe: tomorrow Driving or Machine Use: resume 3 days after discharge Anesthesia . Post Anesthesia Instructions: If you have had General Anesthesia or IV Sedation: * Do not drive today. * Resume driving when surgeon permits. * Do not make important decisions or sign legal documents today. * Call surgeon for: 1. Temperature elevations greater than 101 degrees F. 2. Uncontrollable pain. 3. Excessive bleeding. 4. Persistent nausea and vomiting. 5. Medication intolerance (nausea, vomiting or rash). * For nausea and vomiting use only clear liquids such as: tea, soda, bouillon until nausea subsides, then gradually increase diet as tolerated. * If you have any concerns or questions, call your surgeon's office. If physician is unavailable and it is an emergency, call 911 or go to the nearest emergency room. . Instructions / Follow-Up Instructions / Follow-Up SPECIAL CARE INSTRUCTIONS: * Cover incisions and change daily for comfort/drainage. may leave uncovered with dermabond * May use ibuprofen for pain as tolerated. * Expect some swelling and bruising. Call your doctor if: * Temperature above 101 degrees * Pain not relieved by pain medicine ordered * There is increased drainage or redness from any incision * You have any unanswered questions or concerns [phone]. FOLLOW UP VISIT: If not already scheduled, please call the office for a follow-up visit. for 2 weeks- check up- no sutures to remove OFFICE PHONE NUMBER: Dr. Thibodeaux Office Diet Recommendations Recommended Home Diet: resume previous diet Pending Studies Studies pending at discharge: no Medical Emergencies . Who to Call and When: Medical Emergencies: If at any time you feel your situation is an emergency, please call 911 immediately. . Non-Emergent Contact Non-Emergency issues call your: Primary Care Provider, Surgeon . . "Provider Documentation" section prepared by Varun Thibodeaux. .
--- NOTE | 2017-07-31 10:16 | [facility] Operative Report ---
Operative Report Operative Date Jul 31, 2017. Pre-Operative Diagnosis Right Inguinal Hernia Post-Operative Diagnosis Right Inguinal Hernia Procedure(s) Performed Right Laparoscopic Inguinal Hernia Repair with Mesh Surgeon Dr. Rich Thibodeaux Air Valve Mechanic Surgeon(s) Franki Samuel PA-C Estimated Blood Loss 10mL Findings indirect defect, used Lg 3 DMax mesh Specimens none per surgeon Anesthesia gen Complication(s) None Disposition Recovery Room / PACU I attest to the content of the Intraoperative Record and any orders documented therein. Any exceptions are noted below.
--- NOTE | 2017-07-31 10:49 | OPERATIVE REPORT ---
DATE OF OPERATION: 07/31/2017 NAME OF OPERATION: Laparoscopic right inguinal hernia repair. PREOPERATIVE DIAGNOSIS: Right inguinal hernia. POSTOPERATIVE DIAGNOSIS: Same with indirect defect. STAFF SURGEON: Varun Thibodeaux MD. CLINICAL RN LIAISON: Minh Samuel PA-C. ANESTHESIA: General. FINDINGS: The patient had an indirect hernia sac which was moderate in size. We used a large 3DMax piece of mesh. DESCRIPTION OF PROCEDURE: The patient was brought into the operating room and placed on the operating table in supine position. Kasper catheter, pneumatic stockings and orogastric tube were placed. Incision was made above the umbilicus using 0.5% plain Marcaine to anesthetize all incisions. Dissection was carried down to the fascia, placing a Veress needle producing pneumoperitoneum. Under visualization, two 5 mm ports were placed, 1 right and left lateral. On visualization, the patient did have an indirect hernia on the right side down on the left. Dissection was carried out above and medial to the defect, taking down the peritoneum from medial to lateral. Then the hernia sac was mobilized away from the cord structures. There was a very small lipoma which was mobilized. A piece of large 3DMax mesh was then obtained and placed into the defect. It covered the site very well. It was secured above the inguinal ligament using absorbable tacks being careful to avoid the epigastric vessels and then the peritoneum brought up over the mesh and secured. I did have to use the 5 mm clips to secure the peritoneum also. At this point, the pneumoperitoneum was reduced. All ports removed. The fascia at the umbilicus closed using 0 Vicryl suture. Skin reapproximated using subcuticular 4-0 Monocryl and Dermabond. As a note, my administrative assistant receptionist helped with prepping, draping, entering the abdominal cavity, exposing the hernia, placing the tacks and then closure of the abdomen. I attest to the content of the Intraoperative Record and any orders documented therein. Any exception s are noted below.
--- NOTE | 2017-07-31 11:00 | Anesthesiology Progress Note ---
Anesthesia Post Op Note Date & Time Jul 31, 2017 at 10:59 Vital Signs Pain Intensity: 0 Vital Signs Past 12 Hours Date Time Temp Pulse Resp B/P (MAP) Pulse Ox O2 Delivery O2 Flow Rate FiO2 07/31/17 10:45 63 13 140/83 95 Room Air 07/31/17 10:35 64 16 146/98 100 Oxymask 10 07/31/17 10:25 69 17 162/97 98 Oxymask 07/31/17 10:19 36.8 72 17 170/95 99 Oxymask 10 07/31/17 07:14 36.5 65 18 180/93 (122) 96 Room Air Notes Mental Status: alert / awake / arousable, participated in evaluation Pt Amnestic to Procedure: Yes Nausea / Vomiting: adequately controlled Pain: adequately controlled Airway Patency, RR, SpO2: stable & adequate BP & HR: stable & adequate Hydration State: stable & adequate Anesthetic Complications: no major complications apparent
[2017-07-31 11:05] VITALS: BP 125/70; PULSE 63; TEMP 36.4; O2SAT 95
[2017-07-31 11:37] VITALS: BP 140/82; PULSE 64; O2SAT 96
[2017-07-31 12:05] VITALS: BP 146/85; PULSE 70; TEMP 36.8; O2SAT 98
== END | disposition home or self-care (01) ==
LOC: C.ACU 06:12
PROVIDERS: ATTEND Surgery
DX: K40.90 Unilateral inguinal hernia, without obstruction or gangrene, not specified as recurrent (principal); I10 Essential (primary) hypertension; Z79.899 Other long term (current) drug therapy; I48.91 Unspecified atrial fibrillation; E78.5 Hyperlipidemia, unspecified; Z90.49 Acquired absence of other specified parts of digestive tract; Z82.49 Family history of ischemic heart disease and other diseases of the circulatory system; Z87.891 Personal history of nicotine dependence

== ENCOUNTER → 2017-11-01 | Outpatient (CLI) | payer OTHER, MEDICARE ==
[~2017-11-01] MED LIST changes: -ATROPINE SULFATE 0.1 MG/ML 5ML SYR IV PRN; -BUPIVACAINE 0.5 % 5 MG/1 ML MPF 30ML VIAL ONE; -CEFAZOLIN SOD 1 GM VIAL ONE; -CEPH500C2 PO; -CLINDAMYCIN IV 900 MG in DEXTROSE 5% 50ML 44 ML IV SCH; -DEXAMETHASONE SOD INJ 4 MG/ML VIAL ONE; -EpHEDrine SULFATE INJ 50 MG/ML AMP IV PRN; -FENTANYL CITRATE INJ 50 MCG/1 ML 2 ML VIAL IV PRN; -FENTANYL CITRATE INJ 50 MCG/1 ML 2 ML VIAL ONE; -GLYCOPYRROLATE INJ 0.2 MG/ML VIAL ONE; -HYDROCODONE/ACETAMOPHEN 5/325MG TAB PO PRN; -HYDROmorphone INJ 1 MG/ML SYR IV PRN; -IBUP-1050 PO; -LACTATED RINGER'S 1000ML 1,000 ML IV SCH; -LIDOCAINE HCL 2% 2 ML VIAL (20MG/ML) ONE; -MIDAZOLAM HCL 1 MG/ML 2ML VIAL ONE; -NEOSTIGMINE METHYLSULFATE 5 MG/5 ML SYR ONE; -ONDANSETRON INJ 2 MG/ML 2 ML VIAL IV PRN; -ONDANSETRON INJ 2 MG/ML 2 ML VIAL ONE; -PHENYLEPHRINE HCL INJ 10 MG/ML VIAL ONE; -PROPOFOL IV EMULSION 10 MG/ML 20 ML VIAL IV ONE; -ROCURONIUM BROMIDE 10 MG/ML 5 ML VIAL IV ONE; -XRL10 PO
[2017-11-01 12:58] LABS: ALBUMIN 3.4 gm/dl (3.4-5.0); ALT/SGPT 37 U/L (12-78); AST/SGOT 22 U/L (15-37); BLOOD UREA NITROGEN 25 mg/dl (7-18); CALCIUM 8.9 mg/dl (8.5-10.1); CARBON DIOXIDE 28 mmol/L (21-32); CREATININE 1.11 mg/dl (0.60-1.40); GLUCOSE 101 mg/dl (70-99); SODIUM 139 mmol/L (136-145)
[2017-11-01 13:02] LABS: ALKALINE PHOSPHATASE 62 U/L (45-117); CHOLESTEROL 226 mg/dl (0-200); LDL CHOLESTEROL CALCULATED 138 mg/dl; TOTAL PROTEIN 7.5 gm/dl (6.4-8.2)
== END | disposition home or self-care (01) ==
LOC: C.LABPVFM 07:31
PROVIDERS: ATTEND Family Medicine
DX: I10 Essential (primary) hypertension (principal); I48.91 Unspecified atrial fibrillation; E78.5 Hyperlipidemia, unspecified; Z12.5 Encounter for screening for malignant neoplasm of prostate; R77.1 Abnormality of globulin